=== PATIENT | male | born 1990 | race Caucasian/White ===

== ENCOUNTER 2018-06-23 19:01 | Emergency (ER) | payer BC, OTHER ==
[2018-06-23 19:11] VITALS: RESP 18
[2018-06-23] MEDS ORDERED: PROPARACAINE 0.5% OPHTH DROPS 15 ML BTL RIGHT EYE STA (19:12)
--- NOTE | 2018-06-23 19:39 | ED ---
Eye Problem HPI - General Chief complaint: Eye Problems Stated complaint: FB in eye Time Seen by Provider: 06/23/18 19:12 Source: patient Mode of arrival: ambulatory Limitations: no limitations - History of Present Illness Initial comments: 28-year-old male presenting today for chief complaint of left eye irritation. Patient states that he was working on his car yesterday evening he was working with small piece of metal. He states he was working under the car at times grinding. He denies any specific incidents where he felt something go into his eye. Patient states when he went to bed he noticed a small movable piece of foreign body however is unable to get it out of his eye. Patient states he woke up this morning with left eye irritation. Patient states when irritation persisted and is unable to remove the foreign body from his left eye he presented for evaluation. Patient states tetanus is up-to-date. Patient denies any known drug ALLERGIES. Patient denies vision loss. Patient states his left eye does water and is sensitive to light. Patient denies any eye swelling, headache nausea vomiting vision loss. Remaining review of systems negative upon arrival patient appears well. Pt wears glasses no CL use. - Related Data Home Medications Medication Instructions Recorded Confirmed Ofloxacin [Ocuflox Ophth Soln] 1 drop LEFT EYE QID 06/23/18 06/23/18 Previous Rx's Medication Instructions Recorded Erythromycin Ophth Oint [Romycin 1 applic LEFT EYE QID 5 Days #1 06/23/18 Ophth Oint] tube Allergies Allergy/AdvReac Type Severity Reaction Status Date / Time No Known Allergies Allergy Verified 06/23/18 20:06 Review of Systems ROS Statement: Those systems with pertinent positive or pertinent negative responses have been documented in the HPI. ROS Other: All systems not noted in ROS Statement are negative. Past Medical History Past Medical History: No Reported History History of Any Multi-Drug Resistant Organisms: None Reported Past Surgical History: Orthopedic Surgery Additional Past Surgical History / Comment(s): carpal tunnel Past Psychological History: No Psychological Hx Reported Smoking Status: Current every day smoker Past Alcohol Use History: None Reported Past Drug Use History: Marijuana General Exam - General Exam Comments Initial Comments: General: The patient is awake and alert, in no distress, and does not appear acutely ill. Eye: +3 mm pupils are equal, round and reactive to light, extra-ocular movements are intact. No nystagmus. Very mild conjunctival injection of the left eye in comparison with the right. This is sparing the limbus. Dorsi examination revealed uptake at the 7 o'clock position. Appears metal with rust ring. Negative Paty sign. Pain was alleviated with proparacaine. IOP 11 OS, 9OD Ears, nose, mouth and throat: There are moist mucous membranes and no oral lesions. Neck: The neck is supple, there is no tenderness or JVD. Cardiovascular: There is a regular rate and rhythm. No murmur, rub or gallop is appreciated. Respiratory: Lungs are clear to auscultation, respirations are non-labored, breath sounds are equal. No wheezes, stridor, rales, or rhonchi. Gastrointestinal: Soft, non-distended, non-tender abdomen without masses or organomegaly noted. There is no rebound or guarding present. No CVA tenderness. Bowel sounds are unremarkable. Musculoskeletal: Normal ROM, no tenderness. Strength 5/5. Sensation intact. Pulses equal bilaterally 2+. Neurological: A&O x 3. CN II-XII intact, There are no obvious motor or sensory deficits. Coordination appears grossly intact. Speech is normal. Skin: Skin is warm and dry and no rashes or lesions are noted. Psychiatric: Cooperative, appropriate mood & affect, normal judgment. Limitations: no limitations Course Vital Signs 06/23/18 06/23/18 19:10 20:34 Temperature 98.2 F 97.9 F Pulse Rate 87 68 Respiratory 18 18 Rate Blood Pressure 138/75 138/79 O2 Sat by Pulse 98 98 Oximetry Medical Decision Making - Medical Decision Making 28-year-old male presenting today for chief complaint of foreign body left eye x 1 day. Patient tetanus up-to-date. Patient was working with metals yesterday. Patient has very mild photophobia. No protective eye posturing. Mild conjunctival injection of the left eye. There is evidence of a metal foreign body with rust ring. Negative Paty sign. Normal intraocular pressures. Foreign body was removed using a Q-tip. Rust ring removal was attempted using a endy brush. Unable to fully remove rust ring completely. Patient is placed on erythromycin ointment. She was given follow-up with ophthalmology on Tuesday. Importance of follow-up as well as return parameters were discussed with patient. Patient verbalizes understanding. Discussed case attending provider Dr. Mariscal who is agreeable with patient plan of care and discahrge. Disposition Clinical Impression: Foreign body of left eye Disposition: HOME SELF-CARE Condition: Good Instructions (If sedation given, give patient instructions): Eye Foreign Body (ED) Additional Instructions: Please use medication as discussed. Please follow-up with ophthalmology in 2-3 days as discussed for removal of rust ring. Please return to emergency room if the symptoms increase or worsen or for any other concerns. Prescriptions: Erythromycin Ophth Oint [Romycin Ophth Oint] 1 applic LEFT EYE QID 5 Days #1 tube Is patient prescribed a controlled substance at d/c from ED?: No Referrals: None,Stated [Primary Care Provider] - 1-2 days Simeon Burkett MD [STAFF PHYSICIAN] - 1-2 days Time of Disposition: 19:38
[2018-06-23] MEDS ORDERED: ERYTHROMYCIN 5 MG/GM OPHTH OINT 3.5 GM TUBE LEFT EYE SCH (19:45)
[2018-06-23] MEDS ORDERED: ERYTHROMYCIN 5 MG/GM OPHTH OINT (PED) 1 GM TUBE LEFT EYE SCH (19:45)
[2018-06-23 20:35] VITALS: BP 138/79; PULSE 68; TEMP 97.9
== END 2018-06-23 20:35 | disposition home or self-care (01) ==
LOC: EC 19:01
DX: T15.12XA Foreign body in conjunctival sac, left eye, initial encounter (principal); F17.200 Nicotine dependence, unspecified, uncomplicated
CPT/HCPCS: 65205; 99283

== ENCOUNTER 2019-07-13 03:46 | Emergency (ER) | payer OTHER ==
[2019-07-13 03:52] VITALS: BP 142/86; PULSE 84; RESP 20; TEMP 98.1
--- NOTE | 2019-07-13 04:02 | ED ---
Upper Extremity HPI - General Chief Complaint: Extremity Injury, Upper Stated Complaint: fall Time Seen by Provider: 07/13/19 03:49 Source: patient, family, RN notes reviewed, old records reviewed Mode of arrival: ambulatory Limitations: no limitations - History of Present Illness Initial Comments: This is a 29-year-old male DF for evaluation patient presents today for evaluation of fall. Patient had coughing fit and became weak and his feet fell and hit his shoulder on the wall. No loss of consciousness awake and alert currently. Patient complaining of left shoulder pain but denying any other injury patient denies drugs or alcohol no current headache chest pain shortness breath or abdominal pain MD Complaint: Injury to:: right, shoulder -: hour(s) Other Extremity Injury: Shoulder: Right Other Injuries: none Handedness: right Place: home Severity scale (1-10): 4 Improves With: none Worsens With: none Context: fall, other (Patient believes he was coughing and having difficulty choking on his phlegm and then did fall to the ground) Associated Symptoms: denies other symptoms - Related Data Home Medications Medication Instructions Recorded Confirmed Ofloxacin [Ocuflox Ophth Soln] 1 drop LEFT EYE QID 06/23/18 06/23/18 Previous Rx's Medication Instructions Recorded Erythromycin Ophth Oint [Romycin 1 applic LEFT EYE QID 5 Days #1 06/23/18 Ophth Oint] tube Allergies Allergy/AdvReac Type Severity Reaction Status Date / Time No Known Allergies Allergy Verified 07/13/19 03:52 Review of Systems ROS Statement: Those systems with pertinent positive or pertinent negative responses have been documented in the HPI. ROS Other: All systems not noted in ROS Statement are negative. Past Medical History Past Medical History: No Reported History History of Any Multi-Drug Resistant Organisms: None Reported Past Surgical History: Orthopedic Surgery Additional Past Surgical History / Comment(s): carpal tunnel Past Psychological History: No Psychological Hx Reported Smoking Status: Current every day smoker Past Alcohol Use History: Occasional Past Drug Use History: Marijuana General Exam Limitations: no limitations General appearance: alert, in no apparent distress Head exam: Present: atraumatic, normocephalic, normal inspection Eye exam: Present: normal appearance, PERRL, EOMI. Absent: scleral icterus, conjunctival injection, periorbital swelling ENT exam: Present: normal exam, mucous membranes moist Neck exam: Present: normal inspection. Absent: tenderness, meningismus, lymphadenopathy Respiratory exam: Present: normal lung sounds bilaterally. Absent: respiratory distress, wheezes, rales, rhonchi, stridor Cardiovascular Exam: Present: regular rate, normal rhythm, normal heart sounds. Absent: systolic murmur, diastolic murmur, rubs, gallop, clicks GI/Abdominal exam: Present: soft, normal bowel sounds. Absent: distended, tenderness, guarding, rebound, rigid Extremities exam: Present: normal inspection, full ROM, normal capillary refill, other (Right shoulder tenderness). Absent: tenderness, pedal edema, joint swelling, calf tenderness Back exam: Present: normal inspection Neurological exam: Present: alert, oriented X3, CN II-XII intact Psychiatric exam: Present: normal affect, normal mood Skin exam: Present: warm, dry, intact, normal color. Absent: rash Course Vital Signs 07/13/19 03:47 Temperature 98.1 F Pulse Rate 84 Respiratory 20 Rate Blood Pressure 142/86 O2 Sat by Pulse 100 Oximetry - Reevaluation(s) Reevaluation #1: Medical record is reviewed Patient's pain is controlled Medical Decision Making - Medical Decision Making 29 male to the ER status post fall, patient is left shoulder contusion pain. Not requiring pain medication. Patient can be discharged home - Radiology Data Radiology results: report reviewed (X-ray left shoulder positive for contusion), image reviewed Disposition Clinical Impression: Fall, Contusion of left shoulder Disposition: HOME SELF-CARE Condition: Good Instructions (If sedation given, give patient instructions): Shoulder Sprain (ED) Is patient prescribed a controlled substance at d/c from ED?: No Referrals: None,Stated [Primary Care Provider] - 1-2 days
--- NOTE | 2019-07-13 04:18 | XR ---
EXAMINATION TYPE: XR chest 1V DATE OF EXAM: 07/13/2019 COMPARISON: 03/18/2014 HISTORY: Chest pain TECHNIQUE: FINDINGS: Heart and mediastinum are normal. Lungs are clear. Diaphragm is normal. Bony thorax appears normal. Pulmonary vascularity is normal. IMPRESSION: Normal chest. No change.
--- NOTE | 2019-07-13 04:19 | XR ---
EXAMINATION TYPE: XR shoulder complete LT DATE OF EXAM: 07/13/2019 COMPARISON: NONE HISTORY: Shoulder pain TECHNIQUE: 3 views FINDINGS: I see no fracture nor dislocation. Joint spaces are normal. There are no pathologic calcifi cations. IMPRESSION: Negative left shoulder exam.
== END 2019-07-13 04:59 | disposition home or self-care (01) ==
LOC: EC 03:46
DX: S40.012A Contusion of left shoulder, initial encounter (principal); F17.200 Nicotine dependence, unspecified, uncomplicated; W18.09XA Striking against other object with subsequent fall, initial encounter; Y92.009 Unspecified place in unspecified non-institutional (private) residence as the place of occurrence of the external cause
CPT/HCPCS: 71045; 99284

== ENCOUNTER 2019-09-06 09:40 | Observation (INO) | payer OTHER ==
[2019-09-06] MEDS ORDERED: DEXAMETHASONE SOD PHOSPHATE 10 MG/ML 1 ML VIAL IM STA ×2 (10:39→11:28)
[2019-09-06 11:03] LABS: Appearance,Urine Clear (Clear); Bilirubin,Urine Negative (Negative); Blood,Urine Negative (Negative); Color,Urine Light Yellow; Glucose,Urine (UA) Negative (Negative); Ketones,Urine Negative (Negative); Leukocyte Esterase,Urine Negative (Negative); Nitrite,Urine Negative (Negative); Protein,Urine Negative (Negative); Specific Gravity,Urine 1.009 (1.001-1.035); Urobilinogen,Urine <2.0 mg/dL (<2.0)
--- NOTE | 2019-09-06 11:31 | CT ---
EXAMINATION TYPE: CT lumbar spine wo con DATE OF EXAM: 09/06/2019 11:16 AM COMPARISON: HISTORY: Left buttock and leg pain with numbness CT DLP: 1819.4 mGycm Automated exposure control for dose reduction was used. Unenhanced CT of the lumbar spine was performed. Bone and soft tissue window settings are submitted as well as coronal and sagittal reconstructions. L1-L2: Normal disc space height. No disc herniation protrusion or central stenosis. No facet joint arthropathy. No evidence for foraminal encroachment. L2-L3: Normal disc space height. No disc herniation protrusion or central stenosis. No facet joint arthropathy. No evidence for foraminal encroachment. L3-L4: Normal disc space height. No disc herniation protrusion or central stenosis. No facet joint arthropathy. No evidence for foraminal encroachment. L4-L5: Mild degenerative disc space narrowing. Right paracentral disc bulge resulting in right latera l recess stenosis and mild right foraminal encroachment. No central stenosis. L5-S1: Mild degenerative disc space narrowing. Posterocentral disc bulge resulting in bilateral later al recess stenosis. No central stenosis or gabriel herniation. Mild bilateral foraminal encroachment. Right-sided nephrolithiasis identified.No paraspinal masses are identified. Lumbar segments are inta ct. . IMPRESSION: 1. Degenerative disc disease and disc bulging at L4-5 and L5-S1 as outlined above.
[2019-09-06] MEDS ORDERED: KETOROLAC 30 MG/ML 1 ML VIAL IVP STA (11:53)
[2019-09-06] MEDS ORDERED: KETOROLAC 30 MG/ML 1 ML VIAL IVP PRN (12:05)
[2019-09-06] MEDS ORDERED: NALOXONE 0.4 MG/ML 1 ML VIAL IV PRN (12:05)
--- NOTE | 2019-09-06 12:07 | ED ---
General Adult HPI - General Chief complaint: Back Pain/Injury Stated complaint: Back Pain Time Seen by Provider: 09/06/19 10:12 Source: patient, RN notes reviewed, old records reviewed Mode of arrival: ambulatory Limitations: no limitations - History of Present Illness Initial comments: 29-year-old male patient was ED with chief complaint of left paralumbar, midline lumbar back pain. Patient reports that has been ongoing for 6 months but has been worse in the last 6 weeks. Patient course the had a fall back in july and believes he may have hit his back. Patient reports that he is having numbness and tingling in the genital area he reports that he has had decreased ability to maintain erection in last 3 weeks. Also reports he has paresthesias radiating down his posterior left leg. Denies a loss of bowel or bladder control. Patient has been ambulatory but does report that his left side does feel weaker. Denies any other complaints. Systemic: Pt denies fatigue, fever/chills, rash. Pt denies weakness, night sweats, weight loss. Neuro: Pt denies headache, visual disturbances, syncope or pre-syncope. HEENT: Pt denies ocular discharge or irritation, otalgia, rhinorrhea, pharyngitis or notable lymphadenopathy. Cardiopulmonary: Pt denies chest pain, SOB, heart palpitations, dyspnea on exertion. Abdominal/GI: Pt denies abdominal pain, n/v/d. : Pt denies dysuria, burning w/ urination, frequency/urgency. Denies new onset urinary or bowel incontinence. - Related Data Home Medications Medication Instructions Recorded Confirmed Ibuprofen [Motrin Ib] 400 mg PO Q8H PRN 09/06/19 09/06/19 Allergies Allergy/AdvReac Type Severity Reaction Status Date / Time No Known Allergies Allergy Verified 09/06/19 10:51 Review of Systems ROS Statement: Those systems with pertinent positive or pertinent negative responses have been documented in the HPI. ROS Other: All systems not noted in ROS Statement are negative. Past Medical History Past Medical History: No Reported History History of Any Multi-Drug Resistant Organisms: None Reported Past Surgical History: Orthopedic Surgery Additional Past Surgical History / Comment(s): carpal tunnel Past Psychological History: No Psychological Hx Reported Smoking Status: Current every day smoker Past Alcohol Use History: None Reported, Occasional Past Drug Use History: None Reported, Marijuana General Exam - General Exam Comments Initial Comments: Constitutional: NAD, AOX3, Pt has pleasant affect. HEENT: NC/AT, trachea midline, neck supple, no lymphadenopathy. External ears appear normal, without discharge. Mucous membranes moist. EOM intact. There is no scleral icterus. No pallor noted. Cardiopulmonary: RRR, no murmurs, rubs or gallops, no JVD noted. Lungs CTAB in anterior and posterior marcelino. No peripheral edema. Abdominal exam: Abdomen soft and non-distended. Abdomen non-tender to palpation in all 4 quadrants. Bowel sounds active in LLQ. No hepatosplenomegaly. No ecchymosis Neuro: CN II-XII grossly intact. No nuchal rigidity. No raccon eyes, no madrigal sign. MS: 5 out of 5 strength psoas quadriceps right-sided. 4-5 strength psoas quadriceps left-sided. Patellar reflexes 1/4 bilaterally. Left straight leg raise positive, right straight leg raise negative. Heel-to-toe walking is intact. Rectal tone is intact. Patient does have sensation intact. Limitations: no limitations Course Vital Signs 09/06/19 09/06/19 09/06/19 09:57 10:01 11:01 Temperature 98.2 F Pulse Rate 73 Respiratory 18 20 20 Rate Blood Pressure 127/68 O2 Sat by Pulse 99 Oximetry Medical Decision Making - Medical Decision Making 29-year-old male patient proceeded for evaluation of lumbar back pain. Patient is complaining radiculopathy central dysfunction, saddle anesthesia. Physical exam displayed: 5 out of 5 strength psoas quadriceps right-sided. 4-5 strength psoas quadriceps left-sided. Patellar reflexes 1/4 bilaterally. Left straight leg raise positive, right straight leg raise negative. Heel-to-toe walking is intact. Rectal tone is intact. Sensation is intact. CT lumbar spine displayed degenerative disc disease and disc bulging at L4-L5, L5-S1. PVR is 30 mL. I spoke with Kylah physician nurse practitioner [facility]. Explained my concern for possible cauda equina. She discussed case with Dr. Flowers. He recommended admission and stat lumbar spine which was ordered. case discussed in depth with Dr. Mir. - Lab Data Lab Results 09/06/19 Range/Units 10:46 Urine Color Light Yellow Urine Appearance Clear (Clear) Urine pH 6.0 (5.0-8.0) Ur Specific [place] 1.009 (1.001-1.035) Urine Protein Negative (Negative) Urine Glucose (UA) Negative (Negative) Urine Ketones Negative (Negative) Urine Blood Negative (Negative) Urine Nitrite Negative (Negative) Urine Bilirubin Negative (Negative) Urine Urobilinogen <2.0 (<2.0) mg/dL Ur Leukocyte Esterase Negative (Negative) Disposition Clinical Impression: Lumbar back pain Disposition: ADMITTED IP TO THIS [facility] Condition: Serious Is patient prescribed a controlled substance at d/c from ED?: No Referrals: Baldomero David MD [Primary Care Provider] - 1-2 days
[2019-09-06] MEDS ORDERED: NICOTINE 14MG/24HR PATCH TRANSDERM SCH (12:15)
--- NOTE | 2019-09-06 14:39 | MR ---
EXAMINATION TYPE: MR lumbar spine wo con DATE OF EXAM: 09/06/2019 2:30 PM COMPARISON: NONE HISTORY: Back pain Multiplanar, MultiSpin echo imaging of the lumbar spine was performed. L1-L2: Normal disc appearance without desiccation. No herniation, protrusion or disc bulging. No ca nal stenosis is present. Foramina are patent bilaterally. L2-L3: Normal disc appearance without desiccation. No herniation, protrusion or disc bulging. No ca nal stenosis is present. Foramina are patent bilaterally. L3-L4: Normal disc appearance without desiccation. No herniation, protrusion or disc bulging. No ca nal stenosis is present. Foramina are patent bilaterally. L4-L5: Mild disc desiccation with right paracentral disc protrusion. Mild effacement of the ventral t hecal sac without evidence for central stenosis or lateral recess stenosis. L5-S1: Mild disc desiccation noted. Large extruded disc herniation identified paracentrally and to th e left measuring approximately 1.3 x 1.3 cm and resulting in left lateral recess stenosis and left fo raminal encroachment. Edema of the exiting nerve root identified. Lumbar segments are intact. No paraspinal masses are identified. Conus medullaris has a normal appe arance. IMPRESSION: 1. Large extruded left paracentral disc herniation at L5-S1 with left lateral recess stenosis and lef t foraminal encroachment. Sequestered component is difficult to exclude. 2. Small right paracentral disc protrusion.
[2019-09-06] MEDS ORDERED: LACTATED RINGERS 1,000 ML IV ONE (15:19)
[2019-09-06] MEDS ORDERED: ONDANSETRON 4 MG/2 ML VIAL ONE (15:35)
[2019-09-06] MEDS ORDERED: METOCLOPRAMIDE 5 MG/ML 2 ML VIAL ONE (15:35)
[2019-09-06] MEDS ORDERED: fentaNYL (PF) 50 MCG/ML 2 ML AMP ONE (15:38)
[2019-09-06] MEDS ORDERED: ROCURONIUM BROMIDE 10 MG/ML 5 ML VIAL IV ONE (15:38)
[2019-09-06] MEDS ORDERED: NEOSTIGMINE 1 MG/ML 10 ML VIAL ONE (15:38)
[2019-09-06] MEDS ORDERED: SUCCINYLCHOLINE CHLORIDE VIAL 200 MG/10 ML VIAL IV ONE (15:38)
[2019-09-06] MEDS ORDERED: MIDAZOLAM 2 MG/2 ML VIAL ONE (15:38)
[2019-09-06] MEDS ORDERED: GLYCOPYRROLATE 0.2 MG/ML 2 ML VIAL ONE (15:38)
[2019-09-06] MEDS ORDERED: PROPOFOL 10 MG/ML 20 ML VIAL IV ONE (15:38)
[2019-09-06] MEDS ORDERED: LIDOCAINE 1% INJ 10MG/ML (20 ML MDV) ONE (15:38)
[2019-09-06] MEDS ORDERED: HYDROmorphone (PF) 1 MG/ML ONE (15:38)
[2019-09-06] MEDS ORDERED: FAMOTIDINE 20 MG/2 ML VIAL IV ONE (15:40)
[2019-09-06] MEDS ORDERED: METOCLOPRAMIDE 5 MG/ML 2 ML VIAL IVP ONE (15:41)
[2019-09-06] MEDS ORDERED: SODIUM CHLORIDE 0.9% 50 ML with ceFAZolin 2,000 MG IV ONE ×2 (15:42)
--- NOTE | 2019-09-06 15:45 | P.HPOR ---
History of Present Illness H&P Date: 09/06/19 Chief Complaint: Left lower extremity pain with weakness and numbness patient is a very pleasant 29-year-old male seen at bedside today in regards to her back pain with flexor extremity pain and weakness. Patient's been having worsening pain in his left lower extremity over the past 2 weeks. He has been noticing some pain over the past 6 months but the last 2 weeks been unbearable for him. He says that today at the worst pains ever experience and presented to the emergency room. He says that he has been having some changes in his bowel bladder function with some difficulty urinating difficulty initiating his stream. He is also had some numbness at his perineum and some difficulty with erectile dysfunction which has never happened before. Patient says that he has felt weak in his left lower extremity has been having some stumbling issues because of the weakness. Currently the patient is not working he says that he not have any specific injury but he did fall a couple of months ago and hurt his shoulder. He says the past 2 weeks is been having worsening pain without specific trauma. He denies any fevers or chills. Denies any night sweats. Denies any history of problems with his back or lower extremity. Review of Systems as stated in HPI. He admits to some weakness of his left lower extremity. He doesn't admits to numbness in his lower extremity elevated admits to numbness at his saddle area. He says he has been having some troubles with urinary retention. He has not had loss of control of his bowels. Past Medical History Past Medical History: Asthma, Pneumonia Additional Past Medical History / Comment(s): Chronic bronchitis, chokes easily on saliva, chronic R hand/wrist pain. History of Any Multi-Drug Resistant Organisms: None Reported Past Surgical History: Orthopedic Surgery Additional Past Surgical History / Comment(s): R carpal tunnel release and R hand tumors removed. Past Anesthesia/Blood Transfusion Reactions: No Reported Reaction Past Psychological History: No Psychological Hx Reported Additional Psychological History / Comment(s): Pt resides with his girlfriend. He is independent. Smoking Status: Current every day smoker Past Alcohol Use History: None Reported, Occasional Additional Past Alcohol Use History / Comment(s): Pt started smoking in 2002 and is a ppd smoker. Past Drug Use History: Marijuana Additional Drug Use History / Comment(s): Pt states he smokes several joints of legal marijuana a day. - Past Family History Father Family Medical History: No Reported History Additional Family Medical History / Comment(s): Father is healthy Mother Additional Family Medical History / Comment(s): Mother has chronic pain/DDD Medications and Allergies Home Medications Medication Instructions Recorded Confirmed Type Ibuprofen [Motrin Ib] 400 mg PO Q8H PRN 09/06/19 09/06/19 History Allergies Allergy/AdvReac Type Severity Reaction Status Date / Time No Known Allergies Allergy Verified 09/06/19 10:51 Physical Examination Osteopathic Statement: *. No significant issues noted on an osteopathic structu ral exam other than those noted in the History and Physical/Consult. - L Spine: dermatomal strength & reflexes left Strength: ankle plantar flexion: 4/5 (at his back. The skin is clear. There is nontender to palpation. He has some pain with tries to move in bed. His lower extremities has positive Lasegue's positive straight leg raise. He has sustained dorsiflexion but he has some weakness of plantar flexion on the left. He is some paresthesias around his perineum and sacral area. His cast thighs soft nontender.) Results - Diagnostic results Lumbar MRI with contrast: report reviewed, image reviewed (the MRI of his lumbar spine was done today in the emergency room. Shows a large disc herniation L5-S1 with extruded fragment at the left paracentral area at that level. There is severe left foraminal stenosis and some compression at the cauda equina to the left. He is some disc degeneration L4 5 and L5-S1.) Assessment and Plan Assessment: early cauda equina syndrome Herniated nucleus pulposis L5-S1 Left lower extremity radiculopathy with weakness saddle paresthesias urinary retention Plan: early cauda equina syndrome Herniated nucleus pulposis L5-S1 Left lower extremity radiculopathy with weakness saddle paresthesias urinary retention the patient has evidence of early cauda equina syndrome. He has been having worsening symptoms and I think that he has a large extruded disc fragment at L5- S1 which is causing his symptoms. He may have had some worsening of the extrusion causing his worsening symptoms. He has some pads saddle paresthesias and some difficulty is with his urination over the past few days to the worsening over the past couple of weeks. He also has severe left lower extremity radiculopathy with weakness. We discussed the issue as well as the MRI findings and the disc herniation. With his acute neurologic loss I think that he is a candidate for surgical intervention. I think that surgery would involve laminectomy and discectomy at L5-S1 which could mechanically relieve the pressure on the nerve and help alleviate some of his symptoms. We discussed the possibility of continue with conservative treatment however he feels that his symptoms have been steadily worsening and is interested in pursuing surgical intervention. With his acute neurologic change think that surgery is the best option for him. We answered his questions and his discussed the risk of occasions alternatives and benefits of surgery. he has been nothing by mouth since last night. I discussed the risk of bleeding risk of infection risk and need for further surgery risk of decreased loss of motion nerve damage from postanesthesia as well as the fact that surgery may not alleviate his symptoms as explained. I answered his questions and he elects to proceed with surgical intervention as soon as possible.
[2019-09-06] MEDS ORDERED: GELATIN SPONGE,ABSORB (LARGE) 1 EACH SPONGE TOPICAL ONE (16:14)
[2019-09-06] MEDS ORDERED: BUPIVACAINE (PF) 0.25% 30 ML VIAL SQ ONE (16:14)
[2019-09-06] MEDS ORDERED: THROMBIN (BOVINE) 5,000 UNIT VIAL TOPICAL ONE (16:14)
[2019-09-06] MEDS ORDERED: methylPREDNISolone ACETATE 80 MG/ML 1 ML VIAL INJ ONE (16:40)
[2019-09-06] MEDS ORDERED: BENZOCAINE/MENTHOL LOZENG 1 EACH LOZENGE MUCOUS MEM PRN (16:57)
[2019-09-06] MEDS ORDERED: HYDROmorphone 0.5 MG/0.5 ML SYRINGE IVP PRN (16:57)
[2019-09-06] MEDS ORDERED: MAGNESIUM HYDROXIDE 2,400 MG/10 ML CUP PO PRN (16:57)
[2019-09-06] MEDS ORDERED: HYDROmorphone 1 MG/ML 1 ML SYRINGE IVP PRN (16:57)
[2019-09-06] MEDS ORDERED: HYDROcodone/APAP 5-325MG 1 EACH TAB PO PRN ×2 (16:58)
[2019-09-06] MEDS ORDERED: ONDANSETRON 4 MG/2 ML VIAL IVP PRN (16:58)
[2019-09-06] MEDS ORDERED: IBUPROFEN 400 MG TAB PO PRN (17:00)
[2019-09-06] MEDS ORDERED: SODIUM CHLORIDE 0.9% 1,000 ML IV SCH (17:00)
--- NOTE | 2019-09-06 17:20 | P.OP ---
Date of Procedure: 09/06/19 Preoperative Diagnosis: cAUDA EQUINA SYNDROME, MASSIVE DISC HERNIATION l5-s1, LOWER EXTREMITY RADICULOPATHY, LOWER EXTREMITY WEAKNESS, SADDLE PARESTHESIA, URINARY RETENTION Postoperative Diagnosis: same Anesthesia: GETA Pathology: none sent Condition: stable Disposition: PACU Description of Procedure: BRIEF OPERATIVE NOTE Preoperative Diagnosis:cAUDA EQUINA SYNDROME, MASSIVE DISC HERNIATION l5-s1, LOWER EXTREMITY RADICULOPATHY, LOWER EXTREMITY WEAKNESS, SADDLE PARESTHESIA, URINARY RETENTION Postoperative Diagnosis:cAUDA EQUINA SYNDROME, MASSIVE DISC HERNIATION l5-s1, LOWER EXTREMITY RADICULOPATHY, LOWER EXTREMITY WEAKNESS, SADDLE PARESTHESIA, URINARY RETENTION Procedure: Laminectomy and decompressionL5-S1 Discectomy for decompressionL5-S1 Use of fluoroscopic guidance Surgeon: Dr. Flowers Plant Technician: Dahlia flores Anesthesia: General anesthesia Estimated blood loss:approximately 75 mL Complications: None apparent Components implanted:none Disposition: To recovery room in good stable condition. OPERATIVE INDICATIONS The patient has been having severeissues in their lower back and lower extremities. over the past 2 weeks patient has been having severe worsening of his pain and symptoms particularly on his legs. The past day he has had pain which was incapacitating for him with weakness in his leg and new evidence of numbness at his saddle area with worsening weakness in his left lower extremity. Patient was also experiencing some urinary retention over the past 2 days. He had workup in the emergency room and an MRI which was found have a massive disc herniation at L5-S1 causing severe stenosis and correlated with his cauda equina syndrome symptoms. The patient was given some IV steroid in the emergency room but was having some neurologic loss in his lower extremities and with his saddle paresthesias and urinary retention. Given these issues in his worsening symptoms over the past several days we discussed various treatments including conservative treatment with possibly surgical intervention. We were worried that the patient may lose further function with prolonged severe compression over his cauda equina. We discussed surgical decompression and discectomy with him. We discussed various treatment options including surgery, and the patient wishes to proceed with surgery We discussed the risk, patient's alternatives and benefits of surgery including but not limited to, risk of bleeding risk of infection, risk of need for further surgery, risk of decreased, loss of motion, loss of function, nerve damage, paralysis, heart attack, blindness and . OPERATIVE SUMMARY After discussing all the risks, patient alternatives and benefits at length, the patient elected to proceed with surgical intervention, signed informed consent, and presented for their procedure. The patient was seen and examined in the preoperative holding area and the surgical site was marked. The patient was given antibiotics and brought to the operating room. The patient was sedated and intubated by anesthesia in standard fashion. The patient was positioned on to the operating room table in a prone position on the appropriate frame which was well-padded and well molded. We were careful to pad any bony prominences and pressure points. We were careful to maintain the patient's cervical spine and good neutral alignment and position throughout. The patient was prepped and draped in a normal standard fashion. An appropriate timeout and keystone protocol performed. We were able to proceed with the surgery. Fluoroscopy was utilized to establish the appropriate level. The local wound area was infiltrated with local anesthetic. An incision was made at the midline longitudinally over the appropriate levelsat L5-S1. Dissection was taken down subcutaneously to the level of the fascia which was split midline. Dissection was taken over the lamina. Intraoperative fluoroscopy was taken which showed a marker at the appropriate levelat L5-S1. With the appropriate level positively confirmed, we were able to proceed with laminectomy. The wound was copiously irrigated and suctioned dry as had been done periodically throughout the case. I performed a laminectomy with a combination of curettes and a high-speed bur and Kerrison rongeurs. A small medial facetectomy was performed again further access. A partial foraminotomy was also performed. Portions of the ligamentum flavum were taken down to expose the dura and traversing nerve root. it was obvious that there was severe compression and tension at the traversing nerve root and over the dura particular toward left side. I was able to expose the massive disc herniation underneath the posterior longitudinal ligament.I was able to mobilize the traversing nerve root and gain access to the disc space. Note was made of obvious compression from the disc. Protecting the soft tissue structures, a small annulotomy was established. there is large extruded disc for fragmentation. I was able to perform discectomy and remove any extruded disc fragments and any loose fragments from within the disc itself. There is some disc desiccation noted. I tried to preserve the disc annulus that appeared stable. There were no further extruded fragments noted. There is no evidence of dural tear or leak. Good hemostasis maintained. The wound was copiously irrigated and suctioned dry. Good decompression and discectomy was noted.the nerve root was freely mobile without any evidence of dural tear or leak. We were able to proceed with closure. The fascia was closed for a watertight closure. The subcuticular tissue was closed with absorbable suture. The wound was cleaned and dried and dressed with the appropriate dressing. The drapes were broken down. The patient was gently rolled back onto their hospital bed being careful to maintain their cervical spine and good neutral alignment and position. They were woken up by anesthesia, extubated, and brought to the recovery room in good stable condition. The patient will be admitted to the hospital for observation and for appropriate postoperative care, medical management and monitoring. We will continue to follow them closely about the postoperative course.
[2019-09-06 17:28] VITALS: TEMP 96.9
[2019-09-06 18:02] VITALS: RESP 16
[2019-09-06] MEDS ORDERED: SODIUM CHLORIDE 0.9% 1,000 ML IV ONE ×2 (18:08)
[2019-09-06 19:05] VITALS: BP 136/75; PULSE 81
--- NOTE | 2019-09-07 08:53 | FL ---
EXAMINATION TYPE: FL guidance operating room DATE OF EXAM: 09/06/2019 HISTORY: Fluoroscopy time 4 seconds of fluoroscopy provided. IMPRESSION: 1. Fluoroscopy time.
--- NOTE | 2019-09-07 09:25 | XR ---
EXAM TYPE: LUMBAR SPINE X RAY SERIES COMPARISON: NONE HISTORY: Pain TECHNIQUE: One view submitted. FINDINGS: Single view demonstrates a surgical instrument posterior to the lower lumbar spine level which is briggs ited due to artifact resolution. IMPRESSION: 1. Intraoperative localization.
--- NOTE | 2019-09-13 08:11 | P.DS ---
Providers Date of admission: 09/06/19 11:47 Attending physician: Lex Flowers Primary care physician: Keagan Jannet [facility] Course: The patient presented on the day of admission as per their operative note. He came in through the emergency room due to his weakness in his lower extremities with pain in his lower extremities and some difficulties with urinating and urinary retention and numbness. He is found to have weakness with some evidence of cauda equina syndrome and underwent MRI in the emergency room which showed a large disc herniation L5-S1 which correlated with his symptoms. With his severe symptoms and urinary retention with likely early cauda equina syndrome we discussed different treatment options including surgical intervention. The patient was very interested in pursuing surgical intervention and and after discussing the risk, patient's alternatives and benefits of surgery and conservative treatments the patient was prepared for laminectomy decompression at L5-S1 on that day. Physical Exam The incision site is clean dry and intact. His back is clear There is no erythema no drainage. There is no purulence no evidence of infection. Abdomen soft and nontender. Chest has good excursion with deep inspiration and expiration. The patient has active and passive range of motion intact at the upper and lower extremities. There is no acute change in neurologic status. He has some weakness with plantar flexion at the left lower extremity. It is not worsening. He still has some paresthesias in his saddle area. He has been able to void postoperatively on his own. Hospital Course , Postoperative day 0 status post laminectomy decompression and discectomy at L5-S1 for cauda equina syndrome due to large disc herniation L5-S1. Lower extremity weakness Urinary retention Saddle paresthesias The patient has been making good progress postoperatively. He feels his pain is significantly improved with his surgery. He is unsure of his strength hasn't made improvement but he has been able to void postoperatively on his own. They have completed the prophylactic antibiotics without any signs or symptoms of infection. The patient has been able to advance their diet, and is tolerating diet adequately. The pain was initially controlled with IV medications and is now controlled appropriately with oral medications. The patient has been able to increase their mobilization. The patient has progressed appropriately. I think they are in good stable condition for discharge today. They will be sent home with appropriate prescriptions. I answered their questions to the best of my ability in a language that they can understand and they are agreeable with the plan. They will follow up as directed in approximately one week or sooner if he is having a problems. Patient Condition at Discharge: Fair Plan - Discharge Summary Discharge Rx Participant: No New Discharge Prescriptions: New predniSONE [Deltasone] 20 mg PO DAILY #24 tab HYDROcodone/APAP 5-325MG [[place] 5] 1 - 2 each PO Q6HR PRN #56 tab PRN Reason: Pain No Action Ibuprofen [Motrin Ib] 400 mg PO Q8H PRN PRN Reason: Pain Discharge Medication List HYDROcodone/APAP 5-325MG [[place] 5] 1 - 2 each PO Q6HR PRN #56 tab 09/06/19 [Rx] Ibuprofen [Motrin Ib] 400 mg PO Q8H PRN 09/06/19 [History] predniSONE [Deltasone] 20 mg PO DAILY #24 tab 09/06/19 [Rx] Follow up Appointment(s)/Referral(s): Baldomero David MD [Primary Care Provider] - 1-2 days Lex Flowers DO [Doctor of Osteopathic Medicine] - 2 Weeks Patient Instructions/Handouts: *Surgery [facility] - (Anesthesia) Discharge Instructions Outpatient Surgery Activity/Diet/Wound Care/Special Instructions: Keep site clean. May shower with waterproof Tegaderm intact. Do not soak in a tub. After 72 hours postoperatively, patient May remove dressing and then may shower with area uncovered. Leave Steri-Strips intact and allow them to fray off on their own. May ambulate as tolerated. Avoid heavy or rigorous activity. No repetitive bending twisting or lifting. No overhead work. Discharge Disposition: HOME SELF-CARE
== END 2019-09-06 19:14 | disposition home or self-care (01) ==
LOC: EC 09:40 → 1SOBS 11:47 → 5NMEDONC 15:40
PROVIDERS: ADMIT Orthopaedic Surgery Orthopaedic Surgery of the Spine; ATTEND Orthopaedic Surgery Orthopaedic Surgery of the Spine
DX: G83.4 Cauda equina syndrome (principal); M51.17 Intervertebral disc disorders with radiculopathy, lumbosacral region; M51.37 Other intervertebral disc degeneration, lumbosacral region; M48.07 Spinal stenosis, lumbosacral region; M51.16 Intervertebral disc disorders with radiculopathy, lumbar region; N52.9 Male erectile dysfunction, unspecified; R33.9 Retention of urine, unspecified; F17.210 Nicotine dependence, cigarettes, uncomplicated; J45.909 Unspecified asthma, uncomplicated; G89.29 Other chronic pain; M25.531 Pain in right wrist; Z03.818 Encounter for observation for suspected exposure to other biological agents ruled out; Z79.899 Other long term (current) drug therapy; Z87.09 Personal history of other diseases of the respiratory system; Z91.81 History of falling; Z87.01 Personal history of pneumonia (recurrent); Z98.890 Other specified postprocedural states; Z82.69 Family history of other diseases of the musculoskeletal system and connective tissue
CPT/HCPCS: 63047; 96372; 96374; 99285; 51798; 81003; 72020; 72131; 72148; G0378 ×2; U0003; S4990; J2250; J0330; J1040; J1100; J2710; J2765; J2405; J0690; J2001; J3010; J1885; J1170; J2704

== ENCOUNTER 2019-12-29 03:47 | Emergency (ER) | payer OTHER ==
[2019-12-29 03:55] VITALS: BP 133/82; PULSE 85; RESP 18; TEMP 98.1
[2019-12-29] MEDS ORDERED: IBUPROFEN 600 MG STARTER PACK 4 TAB BTL PO STA (04:03)
[2019-12-29] MEDS ORDERED: Acetaminophen-Codeine 300-30mg TAB PO STA (04:03)
[2019-12-29] MEDS ORDERED: DEXAMETHASONE SOD PHOSPHATE 10 MG/ML 1 ML VIAL IM STA (04:03)
[2019-12-29] MEDS ORDERED: ACET/COD 300 MG/30 MG STARTER PACK 6 TAB BTL PO STA (04:03)
[2019-12-29] MEDS ORDERED: IBUPROFEN 600 MG TAB PO STA (04:03)
--- NOTE | 2019-12-29 04:08 | ED ---
Back Pain HPI - General Chief Complaint: Back Pain/Injury Stated Complaint: back pain Time Seen by Provider: 12/29/19 03:50 Source: patient, RN notes reviewed, old records reviewed Limitations: no limitations - History of Present Illness Initial Comments: this is a 29-year-old male DF for evaluation of back pain chronic back pain 5 days worsening back pain no new injury noted trauma. No history of back disease no history of disc disease with prior surgery. Patient account dysfunction type symptoms she had a prior to his prior surgery as well MD Complaint: back pain, other (no injury) -: days(s) (5) Radiation: none Severity: moderate Severity scale (1-10): 4 Quality: sharp (left-sided), aching Consistency: constant Improves With: none Worsens With: movement Context: other (no trauma by history of surgery) Associated Symptoms: denies other symptoms - Related Data Home Medications Medication Instructions Recorded Confirmed Ibuprofen [Motrin Ib] 400 mg PO Q8H PRN 09/06/19 09/06/19 Previous Rx's Medication Instructions Recorded HYDROcodone/APAP 5-325MG [[place] 5] 1 - 2 each PO Q6HR PRN #56 tab 09/06/19 predniSONE [Deltasone] 20 mg PO DAILY #24 tab 09/06/19 Allergies Allergy/AdvReac Type Severity Reaction Status Date / Time No Known Allergies Allergy Verified 12/29/19 03:55 Review of Systems ROS Statement: Those systems with pertinent positive or pertinent negative responses have been documented in the HPI. ROS Other: All systems not noted in ROS Statement are negative. Past Medical History Past Medical History: Asthma, Pneumonia Additional Past Medical History / Comment(s): Chronic bronchitis, chokes easily on saliva, chronic R hand/wrist pain. History of Any Multi-Drug Resistant Organisms: None Reported Past Surgical History: Back Surgery, Orthopedic Surgery Additional Past Surgical History / Comment(s): R carpal tunnel release and R hand tumors removed. Past Anesthesia/Blood Transfusion Reactions: No Reported Reaction Past Psychological History: No Psychological Hx Reported Smoking Status: Current every day smoker Past Alcohol Use History: Occasional Past Drug Use History: Marijuana - Past Family History Father Family Medical History: No Reported History Additional Family Medical History / Comment(s): Father is healthy Mother Additional Family Medical History / Comment(s): Mother has chronic pain/DDD General Exam Limitations: no limitations General appearance: alert, in no apparent distress, obese Head exam: Present: atraumatic, normocephalic, normal inspection Eye exam: Present: normal appearance, PERRL, EOMI. Absent: scleral icterus, conjunctival injection, periorbital swelling ENT exam: Present: normal exam, mucous membranes moist Neck exam: Present: normal inspection. Absent: tenderness, meningismus, lymphadenopathy Respiratory exam: Present: normal lung sounds bilaterally. Absent: respiratory distress, wheezes, rales, rhonchi, stridor Cardiovascular Exam: Present: regular rate, normal rhythm, normal heart sounds. Absent: systolic murmur, diastolic murmur, rubs, gallop, clicks GI/Abdominal exam: Present: soft, normal bowel sounds. Absent: distended, tenderness, guarding, rebound, rigid Extremities exam: Present: normal inspection, full ROM, normal capillary refill. Absent: tenderness, pedal edema, joint swelling, calf tenderness Back exam: Present: normal inspection Neurological exam: Present: alert, oriented X3, CN II-XII intact Psychiatric exam: Present: normal affect, normal mood Skin exam: Present: warm, dry, intact, normal color. Absent: rash Course Vital Signs 12/29/19 03:51 Temperature 98.1 F Pulse Rate 85 Respiratory 18 Rate Blood Pressure 133/82 O2 Sat by Pulse 98 Oximetry - Reevaluation(s) Reevaluation #1: 12/29/19 04:06 medical records reviewed 12/29/19 04:06 prior ER visits and surgical history is reviewed Reevaluation #2: 12/29/19 04:06 patient symptoms are improved Reevaluation #3: 12/29/19 04:06 spoke with patient regarding symptoms, patient at this point does not want to stay in the hospital will return if symptoms worsen Reevaluation #4: 12/29/19 04:07 patient has no loss of bowel or bladder no significant neurological findings able to ambulate no urinary retention loss of bowel or bladder Medical Decision Making - Medical Decision Making 29 male presented today for evaluation of acute on chronic back pain patient has known history of back disease and disc surgery patient coming in for symptom management, does not want to stay in the hospital is refusing observation, patient encouraged to follow-up with Dr. Flowers at his immediate convenience Disposition Clinical Impression: Lumbar back pain, Mechanical back pain, Lumbar radiculopathy, S/P discectomy for herniated nucleus pulposus Disposition: HOME SELF-CARE Condition: Fair Instructions (If sedation given, give patient instructions): Acute Low Back Pain (ED) Is patient prescribed a controlled substance at d/c from ED?: No Referrals: Lex Flowers DO [Doctor of Osteopathic Medicine] - 1-2 days
== END 2019-12-29 04:17 | disposition home or self-care (01) ==
LOC: EC 03:47
DX: M54.16 Radiculopathy, lumbar region (principal); G89.29 Other chronic pain; M54.9 Dorsalgia, unspecified; F17.200 Nicotine dependence, unspecified, uncomplicated; Z98.890 Other specified postprocedural states
CPT/HCPCS: 99284; 96372; J1100

== ENCOUNTER 2020-01-21 12:33 | Emergency (ER) | payer OTHER ==
[2020-01-21 12:50] VITALS: BP 127/79; PULSE 92; RESP 18; TEMP 98.8
[2020-01-21] MEDS ORDERED: methylPREDNISolone SOD SUCCI 125 MG/2 ML VIAL IM STA (13:36)
[2020-01-21] MEDS ORDERED: KETOROLAC 15 MG/ML 1 ML VIAL IM STA (13:36)
--- NOTE | 2020-01-21 14:00 | ED ---
General Adult HPI - General Chief complaint: Back Pain/Injury Stated complaint: Abd/Back Pain Time Seen by Provider: 01/21/20 13:11 Source: patient, RN notes reviewed Mode of arrival: ambulatory Limitations: no limitations - History of Present Illness Initial comments: 29-year-old male presents to the emergency room for a chief complaint of back pain. Patient reports that he has chronic back pain however has worsened again in the past month or so. Patient reports that in September he had a laminectomy and discectomy at L5-S1. Patient reports that over the past month the pain has worsened again. States that sometimes he is a sharp pain in his leg gives out. Patient denies any weakness in the leg states this is because of pain. Patient denies any bladder or bowel changes. She does admits to numbness in the groin but she states this has been persistent since his surgery and has been unchanged. Patient did see his spine surgeon for the symptoms who recommended monitoring and to follow-up in 2 weeks. Patient reports that steroids helped last time.Patient has no other complaints at this time including shortness of breath, chest pain, abdominal pain, nausea or vomiting, headache, or visual changes. - Related Data Home Medications Medication Instructions Recorded Confirmed Ibuprofen [Motrin Ib] 400 mg PO Q8H PRN 09/06/19 09/06/19 Previous Rx's Medication Instructions Recorded HYDROcodone/APAP 5-325MG [Lyerly 5] 1 - 2 each PO Q6HR PRN #56 tab 09/06/19 predniSONE [Deltasone] 20 mg PO DAILY #24 tab 09/06/19 predniSONE 50 mg PO DAILY #5 tablet 01/21/20 Allergies Allergy/AdvReac Type Severity Reaction Status Date / Time No Known Allergies Allergy Verified 12/29/19 03:55 Review of Systems ROS Statement: Those systems with pertinent positive or pertinent negative responses have been documented in the HPI. ROS Other: All systems not noted in ROS Statement are negative. Past Medical History Past Medical History: Asthma, Pneumonia Additional Past Medical History / Comment(s): Chronic bronchitis, chokes easily on saliva, chronic R hand/wrist pain. History of Any Multi-Drug Resistant Organisms: None Reported Past Surgical History: Back Surgery, Orthopedic Surgery Additional Past Surgical History / Comment(s): R carpal tunnel release and R hand tumors removed. Past Anesthesia/Blood Transfusion Reactions: No Reported Reaction Past Psychological History: No Psychological Hx Reported Smoking Status: Current every day smoker Past Alcohol Use History: Occasional Past Drug Use History: Marijuana - Past Family History Father Family Medical History: No Reported History Additional Family Medical History / Comment(s): Father is healthy Mother Additional Family Medical History / Comment(s): Mother has chronic pain/DDD General Exam Limitations: no limitations General appearance: alert, in no apparent distress Head exam: Present: atraumatic, normocephalic, normal inspection Eye exam: Present: normal appearance, PERRL, EOMI. Absent: scleral icterus, conjunctival injection, periorbital swelling ENT exam: Present: normal exam, mucous membranes moist Neck exam: Present: normal inspection. Absent: tenderness, meningismus, lymphadenopathy Respiratory exam: Present: normal lung sounds bilaterally. Absent: respiratory distress, wheezes, rales, rhonchi, stridor Cardiovascular Exam: Present: regular rate, normal rhythm, normal heart sounds. Absent: systolic murmur, diastolic murmur, rubs, gallop, clicks GI/Abdominal exam: Present: soft, normal bowel sounds. Absent: distended, tenderness, guarding, rebound, rigid Extremities exam: Present: normal capillary refill (Capillary refill less than 2 seconds in the left lower extremity, DP pulse 2+.), other (Strength 5 out of 5 in the left lower extremity. Equal to the right lower extremity. sensation intact in legs and saddle region.). Absent: full ROM (Patient has mildly decreased range of motion with hip flexion in the left hip secondary to pain.), tenderness, pedal edema, joint swelling (no edema of the left leg), calf tenderness Back exam: Absent: CVA tenderness (R), CVA tenderness (L), vertebral tenderness Neurological exam: Absent: normal gait (Patient is able to ambulate however has antalgic gait.) Course Vital Signs 01/21/20 12:46 Temperature 98.8 F Pulse Rate 92 Respiratory 18 Rate Blood Pressure 127/79 O2 Sat by Pulse 98 Oximetry Medical Decision Making - Medical Decision Making Vitals are stable. Patient is well-appearing. Patient does not have any weakness of the legs on history or physical exam. Strength 5 out of 5. Neurovascular intact. No loss of sensation in the saddle region. Patient ambulatory however does have pain with walking on the left leg. Patient denies any bladder or bowel changes. No fevers. Patient reports steroids helped in th e past. Patient was given steroids as well as a prescription. Patient has seen his surgeon for these symptoms and has a follow-up again in 2 weeks. He will follow up with his surgeon at his scheduled appointment. He'll return for any worsening symptoms. These were discussed in depth with him.I discussed this case with attending Dr. Mir who agrees with this assessment and treatment plan. Disposition Clinical Impression: Lumbar back pain, Mechanical back pain Disposition: HOME SELF-CARE Condition: Good Instructions (If sedation given, give patient instructions): Acute Low Back Pain (ED) Additional Instructions: Please take steroid as directed. Take Tylenol as needed for pain. Take your Lyerly as directed if pain is severe. Follow-up with your surgeon. If you have worsening symptoms such as weakness of the legs, bladder or bowel changes, or fevers return to the emergency room. Prescriptions: predniSONE 50 mg PO DAILY #5 tablet Is patient prescribed a controlled substance at d/c from ED?: No Referrals: Baldomero David MD [Primary Care Provider] - 1-2 days Lex Flowers DO [Doctor of Osteopathic Medicine] - 1-2 days Time of Disposition: 13:58
== END 2020-01-21 14:08 | disposition home or self-care (01) ==
LOC: EC 12:33
DX: M54.5 Low back pain (principal); M79.605 Pain in left leg; F17.200 Nicotine dependence, unspecified, uncomplicated; Z98.890 Other specified postprocedural states
CPT/HCPCS: 99283; 96372 ×2; J2930; J1885

== ENCOUNTER 2020-01-29 13:42 | Emergency (ER) | payer OTHER ==
[2020-01-29 13:48] VITALS: BP 123/70; PULSE 79; RESP 16; TEMP 98.7
[2020-01-29] MEDS ORDERED: KETOROLAC 15 MG/ML 1 ML VIAL IM STA (14:03)
[2020-01-29] MEDS ORDERED: predniSONE 50 MG TAB PO STA (14:03)
--- NOTE | 2020-01-29 14:07 | ED ---
General Adult HPI - General Chief complaint: Back Pain/Injury Stated complaint: Back pain Time Seen by Provider: 01/29/20 13:45 Source: patient, RN notes reviewed, old records reviewed Mode of arrival: wheelchair Limitations: no limitations - History of Present Illness Initial comments: This is a 29-year-old male who presents emergency department because he is having back pain on the left lower back third states the pain radiates down his left leg. Patient states the pain is getting worse and his legs giving out because the pain gets so bad. Patient denies any numbness. Patient denies any recent injury or trauma. Patient denies any area of numbness. Patient denies any incontinence or urinary retention. - Related Data Previous Rx's Medication Instructions Recorded predniSONE [Deltasone] 40 mg PO DAILY #8 tab 01/29/20 Allergies Allergy/AdvReac Type Severity Reaction Status Date / Time No Known Allergies Allergy Verified 01/29/20 14:25 Review of Systems ROS Statement: Those systems with pertinent positive or pertinent negative responses have been documented in the HPI. ROS Other: All systems not noted in ROS Statement are negative. Past Medical History Past Medical History: Asthma, Pneumonia Additional Past Medical History / Comment(s): Chronic bronchitis, chokes easily on saliva, chronic R hand/wrist pain. History of Any Multi-Drug Resistant Organisms: None Reported Past Surgical History: Back Surgery, Orthopedic Surgery Additional Past Surgical History / Comment(s): R carpal tunnel release and R hand tumors removed. Past Anesthesia/Blood Transfusion Reactions: No Reported Reaction Past Psychological History: No Psychological Hx Reported Smoking Status: Current every day smoker Past Alcohol Use History: Occasional Past Drug Use History: Marijuana - Past Family History Father Family Medical History: No Reported History Additional Family Medical History / Comment(s): Father is healthy Mother Additional Family Medical History / Comment(s): Mother has chronic pain/DDD General Exam - General Exam Comments Initial Comments: GENERAL: Patient is well-developed and well-nourished. Patient is nontoxic and well- hydrated and is in mild distress. ENT: Neck is soft and supple. No significant lymphadenopathy is noted. Oropharynx is clear. Moist mucous membranes. Neck has full range of motion without eliciting any pain. EYES: The sclera were anicteric and conjunctiva were pink and moist. Extraocular movements were intact and pupils were equal round and reactive to light. Eyelids were unremarkable. PULMONARY: Unlabored respirations. Good breath sounds bilaterally. No audible rales rhonchi or wheezing was noted. CARDIOVASCULAR: There is a regular rate and rhythm without any murmurs gallops or rubs. ABDOMEN: Soft and nontender with normal bowel sounds. SKIN: Skin is clear with no lesions or rashes and otherwise unremarkable. NEUROLOGIC: Patient is alert and oriented x3. Cranial nerves II through XII are grossly intact. Motor and sensory are also intact. Normal speech, volume and content. Symmetrical smile. Straight leg test is negative bilaterally. Patient has normal peritoneum sensation. MUSCULOSKELETAL: Normal extremities with adequate strength and full range of motion. LYMPHATICS: No significant lymphadenopathy is noted PSYCHIATRIC: Normal psychiatric evaluation. Limitations: no limitations Course Vital Signs 01/29/20 13:44 Temperature 98.7 F Pulse Rate 79 Respiratory 16 Rate Blood Pressure 123/70 O2 Sat by Pulse 99 Oximetry Medical Decision Making - Medical Decision Making X-ray of the hip shows no acute abnormality. Patient received Toradol and prednisone in the emergency department. Disposition Clinical Impression: Sciatica Disposition: HOME SELF-CARE Condition: Good Instructions (If sedation given, give patient instructions): Sciatica (ED) Prescriptions: predniSONE [Deltasone] 40 mg PO DAILY #8 tab Is patient prescribed a controlled substance at d/c from ED?: No Referrals: Baldomero David MD [Primary Care Provider] - 1-2 days Time of Disposition: 15:11
--- NOTE | 2020-01-29 14:31 | XR ---
EXAMINATION TYPE: XR Hip Complete LT DATE OF EXAM: 01/29/2020 CLINICAL HISTORY: Left hip pain. History of surgery in August with left hip pain since surgery. TECHNIQUE: AP and frogleg views of the left hip are obtained. COMPARISON: None. FINDINGS: There is no acute fracture or dislocation of the left hip. The hip joint space is maintai zach. There is well-corticated irregularity of the superolateral aspect of the femoral neck which may be related to postoperative change. Normal bone density. The overlying soft tissue appears unremarkab le. IMPRESSION: No acute fracture or dislocation of the left hip.
[2020-01-29] MEDS ORDERED: HYDROmorphone 1 MG/ML 1 ML SYRINGE IM STA (15:13)
== END 2020-01-29 15:23 | disposition home or self-care (01) ==
LOC: EC 13:42
DX: M54.40 Lumbago with sciatica, unspecified side (principal); F17.200 Nicotine dependence, unspecified, uncomplicated; Z98.890 Other specified postprocedural states
CPT/HCPCS: 73502; 99284; 96372 ×2; J1170; J1885; J7512

== ENCOUNTER 2020-02-04 22:18 | Emergency (ER) | payer OTHER ==
[2020-02-04 22:26] VITALS: BP 152/84; PULSE 80; RESP 18; TEMP 98.8
[2020-02-04] MEDS ORDERED: CYCLOBENZAPRINE 10 MG TAB PO STA (22:40)
[2020-02-04] MEDS ORDERED: MORPHINE SULFATE 4 MG/ML SYRINGE IM STA (22:40)
--- NOTE | 2020-02-04 23:29 | ED ---
General Adult HPI - General Chief complaint: Back Pain/Injury Stated complaint: Back Pain Time Seen by Provider: 02/04/20 22:28 Source: patient, RN notes reviewed, old records reviewed Mode of arrival: ambulatory Limitations: no limitations - History of Present Illness Initial comments: 29-year-old male patient to ED for left paralumbar back pain. Patient was that he has chronic lumbar back pain she reports that he has an MRI tomorrow morning and he is having some left paralumbar back pain and back spasms. She is requesting symptomatic analgesia until tomorrow. He denies any red flags symptoms. Denies any falls, denies any weakness loss of bowel or bladder control saddle anesthesias paresthesias. Systemic: Pt denies fatigue, fever/chills, rash. Pt denies weakness, night sweats, weight loss. Neuro: Pt denies headache, visual disturbances, syncope or pre-syncope. HEENT: Pt denies ocular discharge or irritation, otalgia, rhinorrhea, pharyngi tis or notable lymphadenopathy. Cardiopulmonary: Pt denies chest pain, SOB, heart palpitations, dyspnea on exertion. Abdominal/GI: Pt denies abdominal pain, n/v/d. : Pt denies dysuria, burning w/ urination, frequency/urgency. Denies new onset urinary or bowel incontinence. MSK: Pt denies loss of strength or function in extremities. Neuro: Pt denies new onset weakness, paresthesias. - Related Data Home Medications Medication Instructions Recorded Confirmed No Known Home Medications 02/04/20 02/04/20 Allergies Allergy/AdvReac Type Severity Reaction Status Date / Time No Known Allergies Allergy Verified 02/04/20 22:56 Review of Systems ROS Statement: Those systems with pertinent positive or pertinent negative responses have been documented in the HPI. ROS Other: All systems not noted in ROS Statement are negative. Past Medical History Past Medical History: Asthma, Pneumonia Additional Past Medical History / Comment(s): Chronic bronchitis, chokes easily on saliva, chronic R hand/wrist pain. History of Any Multi-Drug Resistant Organisms: None Reported Past Surgical History: Back Surgery, Orthopedic Surgery Additional Past Surgical History / Comment(s): R carpal tunnel release and R hand tumors removed. Past Anesthesia/Blood Transfusion Reactions: No Reported Reaction Past Psychological History: No Psychological Hx Reported Smoking Status: Current every day smoker Past Alcohol Use History: Occasional Past Drug Use History: Marijuana - Past Family History Father Family Medical History: No Reported History Additional Family Medical History / Comment(s): Father is healthy Mother Additional Family Medical History / Comment(s): Mother has chronic pain/DDD General Exam - General Exam Comments Initial Comments: Constitutional: NAD, AOX3, Pt has pleasant affect. HEENT: NC/AT, trachea midline, neck supple, no lymphadenopathy. External ears appear normal, without discharge. Mucous membranes moist. Eyes PERRLA, EOM intact. There is no scleral icterus. No pallor noted. Cardiopulmonary: RRR, no murmurs, rubs or gallops, no JVD noted. Lungs CTAB in anterior and posterior marcelino. No peripheral edema. Abdominal exam: Abdomen soft and non-distended. Abdomen non-tender to palpation in all 4 quadrants. Bowel sounds active in LLQ. No hepatosplenomegaly. No ecchymosis Neuro: CN II-XII grossly intact. No nuchal rigidity. No raccon eyes, no madrigal sign, no hemotympanum. No cervical spinal tenderness. MSK: Very mild tenderness to the left paralumbar region. No skin changes. 5 out of 5 strength psoas and quadriceps muscles. She'll toe walking intact. Full active ROM in upper and lower extremities, 5/5 stregnth. Limitations: no limitations Course Vital Signs 02/04/20 22:23 Temperature 98.8 F Pulse Rate 80 Respiratory 18 Rate Blood Pressure 152/84 O2 Sat by Pulse 98 Oximetry Medical Decision Making - Medical Decision Making 29-year-old male patient to ED for left paralumbar back pain. Patient was that he has chronic lumbar back pain she reports that he has an MRI tomorrow morning and he is having some left paralumbar back pain and back spasms. She is requesting symptomatic analgesia until tomorrow. He denies any red flags symptoms. Denies any falls, denies any weakness loss of bowel or bladder control saddle anesthesias paresthesias. Patient vital signs stable, afebrile. Physical exam negative for acute pathology. Patient is declining any imaging. Patient's symptoms are well controlled. We'll discharge the patient follow-up and return precautions. Case discussed with Dr. Jane. Disposition Clinical Impression: Lumbar back pain Disposition: HOME SELF-CARE Condition: Stable Instructions (If sedation given, give patient instructions): Acute Low Back Pain (ED) Additional Instructions: Follow up with PCP and orthopedist tomorrow. Have MRI tomorrow as scheduled. Return to ED with any worsening or red flag symptoms. Is patient prescribed a controlled substance at d/c from ED?: No Referrals: Baldomero David MD [Primary Care Provider] - 1-2 days Lex Flowers DO [Doctor of Osteopathic Medicine] - 1-2 days
== END 2020-02-05 00:01 | disposition home or self-care (01) ==
LOC: EC 22:18
DX: M54.5 Low back pain (principal); F17.200 Nicotine dependence, unspecified, uncomplicated
CPT/HCPCS: 99283; 96372; J2270

== ENCOUNTER 2020-02-08 21:48 | Emergency (ER) | payer OTHER ==
[2020-02-08 21:54] VITALS: BP 135/84; PULSE 111; RESP 20; TEMP 98.3
[2020-02-08] MEDS ORDERED: HYDROmorphone 1 MG/ML 1 ML SYRINGE IM STA (22:21)
[2020-02-08] MEDS ORDERED: KETOROLAC 15 MG/ML 1 ML VIAL IM STA (22:21)
[2020-02-08] MEDS ORDERED: methylPREDNISolone SOD SUCCI 125 MG/2 ML VIAL IM ONE (22:21)
[2020-02-08] MEDS ORDERED: ORPHENADRINE 30 MG/ML 2 ML VIAL IM STA (22:36)
[2020-02-08] MEDS ORDERED: ACET/COD 300 MG/30 MG STARTER PACK 6 TAB BTL PO STA (23:12)
--- NOTE | 2020-02-08 23:12 | ED ---
Back Pain HPI - General Chief Complaint: Back Pain/Injury Stated Complaint: ABD pain Time Seen by Provider: 02/08/20 22:04 Source: patient, RN notes reviewed, old records reviewed Limitations: no limitations - History of Present Illness Initial Comments: 29-year-old male presents return today for complaints of lower back pain with radiation down bilateral legs. Reports been having these symptoms off and on for the past few weeks. He has a known history of back surgery in September. Patient denies any loss of control of urine or bowel habits. Patient reports that he's been taking pain medication at home. Patient states that he had had improvement most areas but has been off the steroids for the past 2 weeks. Patient states that he has a MRI scheduled at the end of the month. - Related Data Home Medications Medication Instructions Recorded Confirmed Aspirin/Acetaminophen/Caffeine 1 tab PO DAILY PRN 02/08/20 02/08/20 [Excedrin Migraine Caplet] HYDROcodone/APAP 5-325MG [[place] 2 tab PO ONCE PRN 02/08/20 02/08/20 5-325] Previous Rx's Medication Instructions Recorded Cyclobenzaprine [Flexeril] 10 mg PO TID #12 tab 02/08/20 dexAMETHasone [Dexamethasone] 0.75 mg PO DAILY #12 tab 02/08/20 Allergies Allergy/AdvReac Type Severity Reaction Status Date / Time No Known Allergies Allergy Verified 02/08/20 22:40 Review of Systems ROS Statement: Those systems with pertinent positive or pertinent negative responses have been documented in the HPI. ROS Other: All systems not noted in ROS Statement are negative. Past Medical History Past Medical History: Asthma, Pneumonia Additional Past Medical History / Comment(s): Chronic bronchitis, chokes easily on saliva, chronic R hand/wrist pain, back pain History of Any Multi-Drug Resistant Organisms: None Reported Past Surgical History: Back Surgery, Orthopedic Surgery Additional Past Surgical History / Comment(s): R carpal tunnel release and R hand tumors removed. Past Anesthesia/Blood Transfusion Reactions: No Reported Reaction Past Psychological History: No Psychological Hx Reported Smoking Status: Current every day smoker Past Alcohol Use History: Occasional Past Drug Use History: Marijuana - Past Family History Father Family Medical History: No Reported History Additional Family Medical History / Comment(s): Father is healthy Mother Additional Family Medical History / Comment(s): Mother has chronic pain/DDD General Exam - General Exam Comments Initial Comments: 29-year-old male. Alert and oriented. Moderate discomfort Limitations: no limitations General appearance: alert, in no apparent distress Head exam: Present: atraumatic, normocephalic, normal inspection Eye exam: Present: normal appearance, PERRL, EOMI. Absent: scleral icterus, conjunctival injection, periorbital swelling Pupils: Absent: normal accommodation ENT exam: Present: normal exam, mucous membranes moist Neck exam: Present: normal inspection. Absent: tenderness, meningismus, lymphadenopathy Respiratory exam: Present: normal lung sounds bilaterally. Absent: respiratory distress, wheezes, rales, rhonchi, stridor Cardiovascular Exam: Present: regular rate, normal rhythm, normal heart sounds. Absent: systolic murmur, diastolic murmur, rubs, gallop, clicks GI/Abdominal exam: Present: soft, normal bowel sounds. Absent: distended, tenderness, guarding, rebound, rigid Extremities exam: Present: normal inspection, full ROM, normal capillary refill. Absent: tenderness, pedal edema, joint swelling, calf tenderness Back exam: Present: normal inspection, tenderness Neurological exam: Present: alert, oriented X3, CN II-XII intact Psychiatric exam: Present: normal affect, normal mood Skin exam: Present: warm, dry, intact, normal color. Absent: rash Course Vital Signs 02/08/20 21:50 Temperature 98.3 F Pulse Rate 111 H Respiratory 20 Rate Blood Pressure 135/84 O2 Sat by Pulse 98 Oximetry Medical Decision Making - Medical Decision Making 29-year-old male presents with lower back pain information of bilateral legs. The same pain and really for the past few weeks. Patient sees Dr. Flowers and had history of back surgery. He has no falls or trauma this time. Does have an upcoming MRI scheduled next 2 weeks. Patient at this time was given IM analgesics and does report improvement. Discussed suture versus steroids until following orthopedic back specialist. Discussed return parameters. Disposition Clinical Impression: Sciatica, Lumbar back pain Disposition: HOME SELF-CARE Condition: Good Instructions (If sedation given, give patient instructions): Acute Low Back Pain (ED) Additional Instructions: Please use medication as discussed. Please follow up with family doctor if symptoms have not improved over the next two days. Please return to the emergency room if your symptoms increase or worsen or for any other concerns. Prescriptions: dexAMETHasone [Dexamethasone] 0.75 mg PO DAILY #12 tab Cyclobenzaprine [Flexeril] 10 mg PO TID #12 tab Is patient prescribed a controlled substance at d/c from ED?: No Referrals: Baldomero David MD [Primary Care Provider] - 1-2 days Time of Disposition: 23:12
== END 2020-02-08 23:50 | disposition home or self-care (01) ==
LOC: EC 21:48
DX: M54.40 Lumbago with sciatica, unspecified side (principal); F17.200 Nicotine dependence, unspecified, uncomplicated
CPT/HCPCS: 99284; 96372 ×4; J2360; J2930; J1170; J1885

== ENCOUNTER 2020-02-25 19:14 | Emergency (ER) | payer OTHER ==
--- NOTE | 2020-02-25 19:48 | MR ---
EXAMINATION TYPE: MR lumbar spine wo/w con DATE OF EXAM: 02/25/2020 COMPARISON: September 06, 2019 HISTORY: LBP, BLE radiculopathy, surgery September 2001 CONTRAST: Standard multiplanar, multisequence MRI departmental protocol utilizing 14 mL intravenous Gadavist ga dolinium contrast. Lumbar vertebra have normal alignment. There is mild narrowing of disc spaces from L3 to S1. There is no compression fracture. I see no bony destructive process. There is left side laminectomy defect of L5. There is epidural enhancement on the left side at the laminectomy defect. I see no spinal stenos is. There is no lumbar paraspinal mass. There is no compression fracture. There is small posterior di sc herniation at L5-S1 on the left side. IMPRESSION: Epidural enhancement on the left side at L5-S1 consistent with scarring at the laminectomy site. Ther e is significant decrease in the left side posterior L5-S1 lumbar disc herniation compared to old exa m. Epidural scarring is a change compared to old exam.
[2020-02-25] MEDS ORDERED: HYDROmorphone 1 MG/ML 1 ML SYRINGE IM STA (20:02)
--- NOTE | 2020-02-25 20:05 | ED ---
General Adult HPI - General Chief complaint: Back Pain/Injury Stated complaint: Back Pain Time Seen by Provider: 02/25/20 19:34 Source: patient, RN notes reviewed Mode of arrival: wheelchair Limitations: no limitations - History of Present Illness Initial comments: Patient is a pleasant 29-year-old male presenting to the emergency Department with complaints of back pain. Onset of symptoms was around 6 months ago. Patient did have disc surgery around that time. Patient was doing well for a couple months and that symptoms have been returning on and off for the past few months. Patient just started on steroids 2 days ago by his primary care physician. Patient did take one pain pill earlier today. Patient went for MRI and was on the table for proximally 45 minutes. Patient had a lot of discomfort following the MRI and difficulty getting up off the table and was advised come to the emergency department. No new weakness. No loss of control of bowel or bladder. - Related Data Home Medications Medication Instructions Recorded Confirmed Aspirin/Acetaminophen/Caffeine 1 tab PO DAILY PRN 02/08/20 02/25/20 [Excedrin Migraine Caplet] Cyclobenzaprine [Flexeril] 10 mg PO TID PRN 02/25/20 02/25/20 HYDROcodone/APAP 10-325MG [[place] 1 tab PO DAILY PRN 02/25/20 02/25/20 10-325] methylPREDNISolone [Medrol Dose See Taper PO DIRECTED 02/25/20 02/25/20 Pack] Allergies Allergy/AdvReac Type Severity Reaction Status Date / Time No Known Allergies Allergy Verified 02/25/20 20:19 Review of Systems ROS Statement: Those systems with pertinent positive or pertinent negative responses have been documented in the HPI. ROS Other: All systems not noted in ROS Statement are negative. Constitutional: Denies: fever Eyes: Denies: eye pain ENT: Denies: ear pain Respiratory: Denies: cough Cardiovascular: Denies: chest pain Endocrine: Denies: fatigue Gastrointestinal: Denies: abdominal pain Genitourinary: Denies: dysuria Musculoskeletal: Reports: as per HPI, back pain Skin: Denies: rash Neurological: Denies: weakness, paresthesias Past Medical History Past Medical History: Asthma, Pneumonia Additional Past Medical History / Comment(s): Chronic bronchitis, chokes easily on saliva, chronic R hand/wrist pain, back pain History of Any Multi-Drug Resistant Organisms: None Reported Past Surgical History: Back Surgery, Orthopedic Surgery Additional Past Surgical History / Comment(s): R carpal tunnel release and R hand tumors removed. Past Anesthesia/Blood Transfusion Reactions: No Reported Reaction Past Alcohol Use History: Occasional - Past Family History Father Family Medical History: No Reported History Additional Family Medical History / Comment(s): Father is healthy Mother Additional Family Medical History / Comment(s): Mother has chronic pain/DDD General Exam Limitations: no limitations General appearance: alert, in no apparent distress Head exam: Present: normocephalic Eye exam: Present: normal appearance Neck exam: Present: normal inspection Respiratory exam: Present: normal lung sounds bilaterally Cardiovascular Exam: Present: regular rate, normal rhythm GI/Abdominal exam: Present: soft. Absent: tenderness Extremities exam: Present: normal inspection, full ROM Back exam: Present: normal inspection. Absent: tenderness, vertebral tenderness Neurological exam: Present: alert. Absent: motor sensory deficit Expanded Sensory exam: Lower Extremity Light Touch: Normal Motor strength exam: RLE: 5, LLE: 5 Psychiatric exam: Present: normal affect, normal mood Skin exam: Present: normal color Course Vital Signs 02/25/20 19:20 Temperature 98.7 F Pulse Rate 90 Respiratory 20 Rate Blood Pressure 136/97 O2 Sat by Pulse 96 Oximetry Medical Decision Making - Medical Decision Making Patient reevaluated and resting comfortably in bed. Discomfort has improved. Patient updated on MRI report and need for follow-up. - Radiology Data Radiology results: report reviewed Disposition Clinical Impression: Lumbar back pain Disposition: HOME SELF-CARE Condition: Stable Instructions (If sedation given, give patient instructions): Acute Low Back Pain (ED) Additional Instructions: Please follow-up with your primary care physician as well as Dr. Flowers in the next couple days for recheck. Return for weakness, loss of control of bowel or bladder, worsening symptoms or other concerns. Is patient prescribed a controlled substance at d/c from ED?: No Referrals: Baldomero David MD [Primary Care Provider] - 1-2 days Time of Disposition: 21:10
[2020-02-25] MEDS ORDERED: ORPHENADRINE 30 MG/ML 2 ML VIAL IM STA (20:09)
[2020-02-25 21:16] VITALS: BP 126/77; PULSE 85; RESP 16; TEMP 97.6
== END 2020-02-25 21:15 | disposition home or self-care (01) ==
LOC: EC 19:14
DX: M54.5 Low back pain (principal); J45.909 Unspecified asthma, uncomplicated; Z79.51 Long term (current) use of inhaled steroids
CPT/HCPCS: 72158; 99284; 96372 ×2; J2360; J1170; A9585

== ENCOUNTER 2020-03-28 15:18 | Emergency (ER) | payer OTHER ==
[2020-03-28 15:31] VITALS: BP 130/78; PULSE 97; RESP 18; TEMP 98.7
[2020-03-28] MEDS ORDERED: methylPREDNISolone SOD SUCCI 125 MG/2 ML VIAL IM ONE (15:58)
[2020-03-28] MEDS ORDERED: HYDROmorphone 1 MG/ML 1 ML SYRINGE IM STA (15:58)
--- NOTE | 2020-03-28 16:02 | ED ---
General Adult HPI - General Chief complaint: Back Pain/Injury Stated complaint: back & hip pain Time Seen by Provider: 03/28/20 15:20 Source: patient, RN notes reviewed, old records reviewed Mode of arrival: ambulatory Limitations: no limitations - History of Present Illness Initial comments: This is a 29-year-old male who presents emergency Department with back pain. Patient states associated there sometimes it makes his legs give way. Patient states he had back surgery a while back and initially he was doing much better but all of a sudden he has had increased pain. Patient states she seen his surgery multiple times and he has having him for follow-up with a pain specialist. Patient states he has no numbness or actual weakness he has incre ased pain particularly with standing up straight. Patient states a lot of the pain is in the upper back above the surgical site. Patient denies any fever chills. Patient denies any urinary incontinence or urinary retention. She states Motrin and steroids helped in the past. It it's only short lived. - Related Data Home Medications Medication Instructions Recorded Confirmed Aspirin/Acetaminophen/Caffeine 1 tab PO DAILY PRN 02/08/20 02/25/20 [Excedrin Migraine Caplet] Cyclobenzaprine [Flexeril] 10 mg PO TID PRN 02/25/20 02/25/20 HYDROcodone/APAP 10-325MG [[place] 1 tab PO DAILY PRN 02/25/20 02/25/20 10-325] methylPREDNISolone [Medrol Dose See Taper PO DIRECTED 02/25/20 02/25/20 Pack] Previous Rx's Medication Instructions Recorded predniSONE [Deltasone] 40 mg PO DAILY #8 tab 03/28/20 Allergies Allergy/AdvReac Type Severity Reaction Status Date / Time No Known Allergies Allergy Verified 03/28/20 15:31 Review of Systems ROS Statement: Those systems with pertinent positive or pertinent negative responses have been documented in the HPI. ROS Other: All systems not noted in ROS Statement are negative. Past Medical History Past Medical History: Asthma, Pneumonia Additional Past Medical History / Comment(s): Chronic bronchitis, chokes easily on saliva, chronic R hand/wrist pain, back pain History of Any Multi-Drug Resistant Organisms: None Reported Past Surgical History: Back Surgery, Orthopedic Surgery Additional Past Surgical History / Comment(s): R carpal tunnel release and R hand tumors removed. Past Anesthesia/Blood Transfusion Reactions: No Reported Reaction Past Psychological History: No Psychological Hx Reported Smoking Status: Current every day smoker Past Alcohol Use History: Occasional Past Drug Use History: None Reported - Past Family History Father Family Medical History: No Reported History Additional Family Medical History / Comment(s): Father is healthy Mother Additional Family Medical History / Comment(s): Mother has chronic pain/DDD General Exam - General Exam Comments Initial Comments: GENERAL: Patient is well-developed and well-nourished. Patient is nontoxic and well- hydrated and is in moderate distress. ENT: Neck is soft and supple. No significant lymphadenopathy is noted. Oropharynx is clear. Moist mucous membranes. Neck has full range of motion without eliciting any pain. There is no thyroid enlargement and no masses were felt. EYES: The sclera were anicteric and conjunctiva were pink and moist. Extraocular movements were intact and pupils were equal round and reactive to light. Eyelid s were unremarkable. SKIN: Skin is clear with no lesions or rashes and otherwise unremarkable. NEUROLOGIC: Patient is alert and oriented x3. Cranial nerves II through XII are grossly intact. Motor and sensory are also intact. Normal speech, volume and content. Symmetrical smile. Straight leg test is normal bilaterally MUSCULOSKELETAL: Normal extremities with adequate strength and full range of motion. No lower extremity swelling or edema. No calf tenderness. LYMPHATICS: No significant lymphadenopathy is noted PSYCHIATRIC: Normal psychiatric evaluation. N Limitations: no limitations Course Vital Signs 03/28/20 15:27 Temperature 98.7 F Pulse Rate 97 Respiratory 18 Rate Blood Pressure 130/78 O2 Sat by Pulse 98 Oximetry Disposition Clinical Impression: Lumbar pain Disposition: HOME SELF-CARE Condition: Good Instructions (If sedation given, give patient instructions): Low Back Strain (ED) Prescriptions: predniSONE [Deltasone] 40 mg PO DAILY #8 tab Is patient prescribed a controlled substance at d/c from ED?: No Referrals: Baldomero David MD [Primary Care Provider] - 1-2 days
== END 2020-03-28 16:27 | disposition home or self-care (01) ==
LOC: EC 15:18
DX: M54.5 Low back pain (principal); J45.909 Unspecified asthma, uncomplicated; Z79.52 Long term (current) use of systemic steroids; F17.200 Nicotine dependence, unspecified, uncomplicated
CPT/HCPCS: 99283; 96372 ×2; J2930; J1170

== ENCOUNTER → 2020-04-02 | Outpatient (CLI) | payer OTHER ==
[2020-04-02 12:49] VITALS: BP 166/93; PULSE 94; RESP 18; TEMP 98.3
--- NOTE | 2020-04-02 13:11 | P.CONS ---
History of Present Illness - Reason for Consult Consult date: 04/02/20 - Chief Complaint Lower back and legs pain - History of Present Illness This is a 29-year-old morbidly obese gentleman with history of lower back pain with radiation to the lower extremities down to the knees. The patient denies any weakness in the lower extremities or any numbness or tingling. He also denies any bowel or bladder dysfunction. He had lumbar laminectomy at the L5-S1 level due to cauda equina syndrome. The patient used Medrol Dosepak recently for his pain. He tried muscle relaxants before which has not helped his pain. He smokes one pack of cigarettes a day and he admits to using marijuana occasionally. He lives by himself. The patient's pain increases by standing and walking and also at night. There are no alleviating factors. Past Medical History Past Medical History: Asthma, Musculoskeletal Disorder, Pneumonia Additional Past Medical History / Comment(s): Hx chronic bronchitis; chronic R hand/wrist pain; back pain w/ trouble walking or standing, muscle spasms in back History of Any Multi-Drug Resistant Organisms: None Reported Past Surgical History: Back Surgery, Orthopedic Surgery Additional Past Surgical History / Comment(s): R carpal tunnel release and R hand tumors removed. Laminectomy w/ decompression, discectomy L5-S1 09/2019. Past Anesthesia/Blood Transfusion Reactions: No Reported Reaction Past Psychological History: No Psychological Hx Reported Additional Psychological History / Comment(s): Pt resides with his girlfriend. He is independent. Smoking Status: Current every day smoker Past Alcohol Use History: Rare Additional Past Alcohol Use History / Comment(s): Started smoking in 2002, 1 ppd Past Drug Use History: Marijuana Additional Drug Use History / Comment(s): Pt states he smokes several joints of legal marijuana a day. - Past Family History Father Family Medical History: No Reported History Additional Family Medical History / Comment(s): Father is healthy Mother Additional Family Medical History / Comment(s): Mother has chronic pain/DDD Medications and Allergies Home Medications Medication Instructions Recorded Confirmed Type Cyclobenzaprine [Flexeril] 10 mg PO TID PRN 02/25/20 03/31/20 History Albuterol Inhaler [Ventolin Hfa 1 - 2 puff INHALATION RT-QID PRN 03/31/20 03/31/20 History Inhaler] Ibuprofen [Motrin] 800 mg PO Q8H PRN 03/31/20 03/31/20 History predniSONE [Deltasone] 20 mg PO BID 03/31/20 03/31/20 History Allergies Allergy/AdvReac Type Severity Reaction Status Date / Time No Known Allergies Allergy Verified 03/31/20 15:31 Physical Exam Vitals: Vital Signs Temp Pulse Resp BP Pulse Ox 04/02/20 12:44 98.3 F 94 18 166/93 97 - Constitutional General appearance: morbidly obese - EENT Eyes: PERRLA - Neurologic Neuro exam of the lower extremities showed normal and symmetrical muscle strength and deep tendon reflexes, except for decreased left ankle reflex compared to the right side. Straight leg raising test negative bilaterally There is well-healed scar in the lumbar area Positive tenderness in the lumbar paravertebral musculature bilaterally on both sides of the scar. Neurologic: CNII-XII intact - Psychiatric Psychiatric: A&O x's 3, appropriate affect, intact judgment & insight Results Results: His lumbar spine MRI which was done in February 2020 showed epidural enhancement on the left side at L5-S1 consistent with scarring at the laminectomy site. Mild narrowing of disc spaces from L3 to S1 Assessment and Plan Plan: This is a 29-year-old gentleman with lower back pain with radiation to the bilateral extremities in no specific radicular distribution. 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 He also may benefit from a diagnostic lumbar medial branch block in the future if the lumbar epidural does not help his pain. I thank you for the referral
== END | disposition home or self-care (01) ==
LOC: PNWHC3 12:31
PROVIDERS: ATTEND Anesthesiology
DX: M96.1 Postlaminectomy syndrome, not elsewhere classified (principal); M51.36 Other intervertebral disc degeneration, lumbar region; M47.816 Spondylosis without myelopathy or radiculopathy, lumbar region; E66.01 Morbid (severe) obesity due to excess calories; J45.909 Unspecified asthma, uncomplicated; F17.210 Nicotine dependence, cigarettes, uncomplicated; Z79.1 Long term (current) use of non-steroidal anti-inflammatories (NSAID); Z79.52 Long term (current) use of systemic steroids
CPT/HCPCS: 99211

== ENCOUNTER 2020-04-22 10:34 | Day surgery (SDC) | payer OTHER ==
[2020-04-21 10:34] VITALS: BMI 40.8
[2020-04-22 10:57] VITALS: TEMP 97.8
[2020-04-22] MEDS ORDERED: LACTATED RINGERS 1,000 ML IV ONE ×2 (11:07)
[2020-04-22] MEDS ORDERED: LIDOCAINE 1% (10MG/ML) FOR IV START INTRADERMA ONE (11:08)
[2020-04-22] MEDS ORDERED: IOPAMIDOL M200 10 ML VIAL ONE (11:22)
[2020-04-22] MEDS ORDERED: fentaNYL (PF) 50 MCG/ML 2 ML AMP ONE (11:22)
[2020-04-22] MEDS ORDERED: TRIAMCINOLONE ACETONIDE 40 MG/ML 1 ML VIAL ONE (11:22)
[2020-04-22] MEDS ORDERED: LIDOCAINE 1% INJ 10MG/ML (20 ML MDV) ONE (11:22)
[2020-04-22] MEDS ORDERED: MIDAZOLAM 2 MG/2 ML VIAL ONE (11:22)
[2020-04-22] MEDS ORDERED: SODIUM CHLORIDE 0.9% (PF) 10 ML VIAL ONE (11:22)
--- NOTE | 2020-04-22 11:43 | P.PCN ---
Date of Procedure: 04/22/20 Description of Procedure: PREOPERATIVE DIAGNOSIS: Lumbar radiculopathy POSTOPERATIVE DIAGNOSIS: Same PROCEDURE PERFORMED: Interlaminar Epidural Steroid Injection at the L4-L5 level, with a left paramedian approach under fluoroscopic guidance SURGEON: Moise Cuenca MD ANESTHESIA: Local with 1% lidocaine 3 ml and IV sedation with Versed and fentanyl, sedation time 16 minutes Fluoroscopy was used for the procedure and images were saved in the radiology portion of the chart. EBL: Minimal PROCEDURE INDICATION: The patient presents with lumbar radicular symptoms unresponsive to conservative treatment. This is the first lumbar epidural steroid injection PROCEDURE DESCRIPTION / TECHNIQUE: The patient was seen and identified in the preoperative area. Risks, benefits, complications including but not limited to infections ,bleeding ,allergic reaction to the medications ,nerve damage and incomplete pain relief, and alternatives were discussed with the patient. The patient agreed to proceed with the procedure and signed the consent. IV was started, and vital signs were stable. Patient was taken to the OR and time out was completed. The patient was placed in the prone position on procedure table and a pillow was placed under the chest area. The cervical area was prepped and draped in the usual sterile fashion. Conscious sedation was used during the procedure to decrease patients anxiety. Vital signs was monitored during the entire procedure. Using anterior-posterior fluoroscopy, the L4-5 interlaminar space was identified and the skin over this site was marked and then infiltrated with 1% lidocaine subcutaneously. Subsequently, a 20-gauge Tuohy epidural needle 5 inch was inser selma and advanced toward the epidural space using the loss of resistance technique and guided by AP and lateral views. The correct needle position in the epidural space was verified. After negative aspiration for blood and CSF and in the absence of paresthesias, Isovue 200 2 mL's was injected under live fluoroscopy with good epidural spread. After negative aspiration, a 5 mL mixture containing 2 mL PFNS, 2 mL 1% lidocaine, 40 mg kenalog. Needle was withdrawn intact, skin was cleansed, and bandages were applied. COMPLICATIONS: None DISPOSITION / PLANS: The patient was placed in a supine position and transferred to the recovery area in a stable condition for observation. There was no evidence of lower extremity motor or sensory deficit after the procedure. Patient was discharged from the recovery room after meeting discharge criteria. Home discharge instructions were given to the patient by the staff. The patient will be scheduled a repeat procedure in the clinic in 2-4 weeks.
[2020-04-22] MEDS ORDERED: IV FLUID CONTINUATION 500 ML IV ONE (11:48)
[2020-04-22 12:00] VITALS: RESP 20
--- NOTE | 2020-04-22 12:02 | FL ---
EXAMINATION TYPE: FL guided pain mgmt statistic DATE OF EXAM: 04/22/2020 HISTORY: Fluoroscopy time 14 seconds of fluoroscopy provided. IMPRESSION: 1. Fluoroscopy time.
[2020-04-22 12:24] VITALS: BP 142/80; PULSE 90
== END 2020-04-22 12:18 | disposition home or self-care (01) ==
LOC: ORPAIN 10:34
PROVIDERS: ATTEND Anesthesiology
DX: M54.16 Radiculopathy, lumbar region (principal)
CPT/HCPCS: 62323; J2250; J3301; J2001; J3010; Q9966; 99152

== ENCOUNTER 2020-05-08 09:46 | Emergency (ER) | payer OTHER ==
[2020-05-08 09:50] VITALS: TEMP 97.7
[2020-05-08] MEDS ORDERED: KETOROLAC 15 MG/ML 1 ML VIAL IVP STA (10:05)
[2020-05-08] MEDS ORDERED: DIAZEPAM 5 MG/ML 2 ML INJ IM STA (10:05)
[2020-05-08] MEDS ORDERED: DIAZEPAM 5 MG/ML 2 ML INJ IVP STA (10:13)
--- NOTE | 2020-05-08 10:37 | XR ---
EXAMINATION TYPE: XR wrist complete RT DATE OF EXAM: 05/08/2020 CLINICAL HISTORY: Pain and swelling. TECHNIQUE: Frontal, lateral , scaphoid, and oblique images of the right wrist are obtained. 4 view scaphoid view is performed. COMPARISON: None FINDINGS: There is no acute fracture/dislocation evident in the right wrist. The joint spaces in th e right wrist appear within normal limits. The overlying soft tissue appears unremarkable. IMPRESSION: Unremarkable study.
[2020-05-08] MEDS ORDERED: methylPREDNISolone SOD SUCCI 125 MG/2 ML VIAL IV STA (10:52)
[2020-05-08] MEDS ORDERED: HYDROmorphone 1 MG/ML 1 ML SYRINGE IVP STA (10:52)
[2020-05-08] MEDS ORDERED: ONDANSETRON 4 MG/2 ML VIAL IVP STA (10:52)
[2020-05-08] MEDS ORDERED: ACET/COD 300 MG/30 MG STARTER PACK 6 TAB BTL PO STA (10:53)
--- NOTE | 2020-05-08 10:58 | ED ---
Upper Extremity HPI - General Chief Complaint: Extremity Injury, Upper Stated Complaint: R Wrist Pain Time Seen by Provider: 05/08/20 09:51 Source: patient, RN notes reviewed Mode of arrival: ambulatory Limitations: no limitations - History of Present Illness Initial Comments: This a 30-year-old male presents emergency Department chief complaint of right wrist pain. Patient had ongoing wrist injury problems with this. Patient states he had multiple tumors, cyst removed along with Proventil surgery at same time. Patient states that the tumors grew back. Patient states he woke up states pain is worse which feels like his carpal tunnel. Denies any trauma states he sleeps with his hand above his head. Patient does admit to some occasional paresthesias he is [id number]. No neck pain no fevers chills no redness or discoloration of his digits. - Related Data Home Medications Medication Instructions Recorded Confirmed Cyclobenzaprine [Flexeril] 10 mg PO TID PRN 02/25/20 05/07/20 Albuterol Inhaler [Ventolin Hfa 1 - 2 puff INHALATION RT-QID PRN 03/31/20 05/07/20 Inhaler] Ibuprofen [Motrin] 800 mg PO Q8H PRN 03/31/20 05/07/20 Previous Rx's Medication Instructions Recorded predniSONE 50 mg PO DAILY #5 tab 05/08/20 Allergies Allergy/AdvReac Type Severity Reaction Status Date / Time No Known Allergies Allergy Verified 05/08/20 09:50 Review of Systems ROS Statement: Those systems with pertinent positive or pertinent negative responses have been documented in the HPI. ROS Other: All systems not noted in ROS Statement are negative. Past Medical History Past Medical History: Asthma, Pneumonia Additional Past Medical History / Comment(s): Chronic bronchitis, chokes easily on saliva, chronic R hand/wrist pain, back pain History of Any Multi-Drug Resistant Organisms: None Reported Past Surgical History: Back Surgery, Orthopedic Surgery Additional Past Surgical History / Comment(s): R carpal tunnel release and R hand tumors removed. Past Anesthesia/Blood Transfusion Reactions: No Reported Reaction Past Psychological History: No Psychological Hx Reported Smoking Status: Current every day smoker Past Alcohol Use History: None Reported Past Drug Use History: Marijuana - Past Family History Father Family Medical History: No Reported History Additional Family Medical History / Comment(s): Father is healthy Mother Additional Family Medical History / Comment(s): Mother has chronic pain/DDD General Exam Limitations: no limitations General appearance: alert, in no apparent distress Head exam: Present: atraumatic, normocephalic, normal inspection Eye exam: Present: normal appearance, PERRL, EOMI. Absent: scleral icterus, conjunctival injection, periorbital swelling Neck exam: Present: normal inspection, full ROM. Absent: tenderness, meningismus, lymphadenopathy Respiratory exam: Present: normal lung sounds bilaterally. Absent: respiratory distress, wheezes, rales, rhonchi, stridor Cardiovascular Exam: Present: regular rate, normal rhythm, normal heart sounds. Absent: systolic murmur, diastolic murmur, rubs, gallop, clicks Extremities exam: Present: other (Capillary refill less than 2 seconds of all digits, full range of motion of the right hand and wrist but reports moderate discomfort. There is swelling, tenderness over the wrist with no erythema no increased warmth radial pulses palpable and equal bilaterally) Course Vital Signs 05/08/20 09:48 Temperature 97.7 F Pulse Rate 80 Respiratory 16 Rate Blood Pressure 155/63 O2 Sat by Pulse 98 Oximetry Medical Decision Making - Medical Decision Making X-rays unremarkable. Patient does have some ongoing risk issues related to carpal tunnel, tumors. Patient symptoms are more inflammatory. Patient was given pain medication, steroids will be discharged in stable condition with follow-up with Dr. Bolton. Disposition Clinical Impression: Wrist pain, Carpal tunnel syndrome Disposition: HOME SELF-CARE Condition: Stable Instructions (If sedation given, give patient instructions): Wrist Injury (ED) Additional Instructions: Please return to the Emergency Department if symptoms worsen or any other concerns. Prescriptions: predniSONE 50 mg PO DAILY #5 tab Is patient prescribed a controlled substance at d/c from ED?: No Referrals: Baldomero David MD [Primary Care Provider] - 1-2 days Marcello Bolton DO [Doctor of Osteopathic Medicine] - 1-2 days Time of Disposition: 10:58
[2020-05-08 11:19] VITALS: BP 126/40; PULSE 72; RESP 17
== END 2020-05-08 11:25 | disposition home or self-care (01) ==
LOC: EC 09:46
DX: G56.01 Carpal tunnel syndrome, right upper limb (principal); J44.9 Chronic obstructive pulmonary disease, unspecified; F17.200 Nicotine dependence, unspecified, uncomplicated; Z79.1 Long term (current) use of non-steroidal anti-inflammatories (NSAID); Z79.52 Long term (current) use of systemic steroids
CPT/HCPCS: 73110; 99283; 96374; 96375; 96372; J2930; J3360; J2405; J1170; J1885

== ENCOUNTER 2020-05-13 09:58 | Day surgery (SDC) | payer OTHER ==
[2020-05-07 16:00] VITALS: BMI 42.8
[~2020-05-13 09:58] MED LIST: LACTATED RINGERS 1,000 ML IV SCH
[2020-05-13 10:35] VITALS: RESP 16; TEMP 98
[2020-05-13] MEDS ORDERED: fentaNYL (PF) 50 MCG/ML 2 ML AMP ONE (10:43)
[2020-05-13] MEDS ORDERED: methylPREDNISolone ACETATE 40 MG/ML 1 ML VIAL ONE (10:43)
[2020-05-13] MEDS ORDERED: MIDAZOLAM 2 MG/2 ML VIAL ONE (10:43)
[2020-05-13] MEDS ORDERED: IOPAMIDOL M200 10 ML VIAL ONE (10:43)
--- NOTE | 2020-05-13 11:04 | P.PCN ---
Date of Procedure: 05/13/20 Procedure(s) Performed: PREOP DIAGNOSIS: 1- Lumbar postlaminectomy syndrome. 2-lumbar spondylosis with lumbar facet arthropathy. 3-lumbar radiculopathy POSTOP DIAGNOSIS:Same as pre op diagnosis. PROCEDURE: 1-Caudal epidural steroid injection with epidurolysis and epidurogram under fluoroscopic guidance. (Fluoroscopy images available in the radiology Department ) 2-caudal epidurogram. ANESTHESIA: Local with 1% lidocaine 3 ml ,and moderate sedation, with Versed 4 mg ,and fentanyl 100 g. EBL: Minimal. PROCEDURE INDICATION: The patient with post-laminectomy syndrome with low back pain and radiculopathy radiating down in both legs, here for a caudal epidural steroid injection with epidurolysis. PROCEDURE DESCRIPTION: The patient was seen and identified in the preoperative area. Risks, benefits, complications, and alternatives were discussed with the patient. The patient agreed to proceed with the procedure and signed the consent. IV was started, and vital signs were stable. Patient was taken to the OR and time out was completed. The patient was placed in the prone position on procedure table and a pillow was placed under the abdomen to reduce lumbar lordosis. The lumbosacral area was prepped and draped in the usual sterile fashion. Vital signs were closely monitored during the procedure. lateral view and the anterior-posterior plates of the sacrum were identified with infiltration of the area overlying the sacral hiatus with 1% lidocaine .A 17 gauge RK epidural needle was used to advance through the sacral hiatus into the caudal epidural space. Omnipaque 180 dye. 2cc was injected and the position of the needle was verified to be in the midline. A Racz catheter was introduced into the epidural space and was advanced towards the L5-S1 interspace under direct fluoroscopic guidance. Multiple passes were made with the catheter for lysis of epidural adhesions. Depo-Medrol 60 mg with 3ml of preservative free Lidocaine 1% and 5 ml of preservative free normal saline was injected slowly. Additional spread was seen to L4 under fluoroscopy. The needle and the catheter were withdrawn intact. EPIDUROGRAM: Omnipaque 180 mg dye 2 ml was injected with spread of the dye into the caudal epidural space and with spread cutoff at L5 prior to epidurolysis. Post epidurolysis dye 2 ml was injected and spread was seen to L3-4.There was further spread of the solution together with the dye above the L3 COMPLICATIONS: None. DISPOSITION / PLANS: The patient was placed in a supine position and transferred to the recovery area in a stable condition for observation and was discharged from the recovery room after meeting discharge criteria. Home discharge instructions given to the patient by the staff. The patient was reexamined prior to discharge. The patient will schedule a follow up in the clinic in 2-4 weeks.
--- NOTE | 2020-05-13 11:12 | FL ---
EXAMINATION TYPE: FL guided pain mgmt statistic DATE OF EXAM: 05/13/2020 HISTORY: Fluoroscopy time 9 seconds of fluoroscopy provided. IMPRESSION: 1. Fluoroscopy time.
[2020-05-13] MEDS ORDERED: IV FLUID CONTINUATION 1,000 ML IV ONE (11:23)
[2020-05-13 11:25] VITALS: BP 107/59; PULSE 66
== END 2020-05-13 11:37 | disposition home or self-care (01) ==
LOC: ORPAIN 09:58
PROVIDERS: ATTEND Specialist
DX: M47.26 Other spondylosis with radiculopathy, lumbar region (principal); M51.16 Intervertebral disc disorders with radiculopathy, lumbar region; M96.1 Postlaminectomy syndrome, not elsewhere classified
CPT/HCPCS: 62264; J2250; J1030; J3010; Q9966; C1894; 99152

== ENCOUNTER → 2020-06-02 | Outpatient (CLI) | payer OTHER ==
[2020-06-02 09:19] VITALS: BP 138/83; PULSE 108; RESP 16; TEMP 98.1
--- NOTE | 2020-06-02 09:34 | P.PN ---
Subjective Progress Note Date: 06/02/20 This is a 30-year-old gentleman with history of chronic lower back pain with radiation to the left foot bilaterally. The patient has more pain in the lower back than in his legs. He had caudal epidural steroid injection was given him with pain relief for couple of weeks over his back pain is more intense than his legs and he does wake her up at night. Patient denies new-onset weakness, bowel/bladder incontinence, or any other si gns or symptoms of cauda equina syndrome. There are no signs of acute intoxication, and no indications of medication diversion or overuse. In addition to above, 13-point review of systems is also negative for chest pain, shortness of breath, changes in vision, changes in hearing, new onset weakness, abdominal pain, diarrhea, extreme fatigue, malaise, fever, skin changes, homicidal or suicidal ideation, or bowel or bladder incontinence. Vital Signs: Reviewed in EMR Gen: AAOx3, NAD HEENT: PERRLA,hearing grossly normal Pulm: resp unlabored Neck: supple, trachea midline Neuro exam of the lower extremities: Normal muscle strength bilaterally Straight leg raising test: Shaquille's test: Range of motion of the lumbar spine: Facet loading test: Positive in the lumbar area bilaterally Tenderness in the paravertebral musculature: Positive on the lumbar area bilaterally Neuro: CN II-XII grossly intact, Imaging: Reviewed in EMR/chart Assessment: Lumbar spondylosis without myelopathy Lumbar postlaminectomy pain syndrome Morbid obesity Tobacco dependence Plan: 1. Explanation: Opioid and psychological risk scores were reviewed. Diagnoses, prognoses, and multiple treatment options including but not limited to physical therapy, interventional therapies, adjuvant medical therapies, narcotic medication therapies, and surgery were discussed with the patient and all questions were answered to the patient's satisfaction. 2. Opioid agreement: Signed with the patient and the patient is warned not to use opioids while driving or before driving and not to combine opioids with benzodiazepines or alcohol. 3. Counseling: The patient was counseled extensively on SMOKING CESSATION, BODY MASS INDEX, EXERCISE. Specifically, the patient was instructed regarding the importance of smoking cessation, obesity, and exercise in the context of both chronic pain and overall health. 4. Procedures: Schedule for a diagnostic lumbar medial branch block under fluoroscopic guidance for levels L4 5 and L5-S1 bilaterally. 5. Consultations: None 6. Investigations: None 7. Medications: The patient takes Motrin 800 mg twice a day 8. Disposition: Return to the above-mentioned procedure as soon as possible 9. Maps were reviewed and were appropriate. Objective - Vital Signs Vital signs: Vital Signs Temp 98.1 F 06/02/20 09:17 Pulse 108 H 06/02/20 09:17 Resp 16 06/02/20 09:17 BP 138/83 06/02/20 09:17 Pulse Ox 97 06/02/20 09:17
== END ==
LOC: PNWHC3 09:06
PROVIDERS: ATTEND Anesthesiology
DX: M47.816 Spondylosis without myelopathy or radiculopathy, lumbar region (principal); M96.1 Postlaminectomy syndrome, not elsewhere classified; E66.01 Morbid (severe) obesity due to excess calories; F17.200 Nicotine dependence, unspecified, uncomplicated
CPT/HCPCS: 99211

== ENCOUNTER 2020-06-08 05:57 | Emergency (ER) | payer OTHER ==
[2020-06-08 06:06] VITALS: BP 126/74; RESP 18; TEMP 97.9
[2020-06-08] MEDS ORDERED: KETOROLAC 15 MG/ML 1 ML VIAL IM STA (06:40)
[2020-06-08] MEDS ORDERED: HYDROcodone/APAP 5-325MG 1 EACH TAB PO STA (06:40)
[2020-06-08] MEDS ORDERED: ACET/COD 300 MG/30 MG STARTER PACK 6 TAB BTL PO STA (06:47)
--- NOTE | 2020-06-08 06:47 | ED ---
Back Pain HPI - General Chief Complaint: Back Pain/Injury Stated Complaint: back/hip pain Time Seen by Provider: 06/08/20 06:29 Source: patient Limitations: no limitations - History of Present Illness Initial Comments: Patient is a 30-year-old male, with history of chronic back pain, presenting to the emergency Department with complaints of increase in his chronic back pain. He denies any falls or trauma. He denies any fevers or chills. He states he did have a phone conversation with the pain clinic earlier this week, they did have a plan for more epidurals. Patient states he has been taking 2 ibuprofen daily for his pain however he has not been able to sleep very well over the last few days secondary to increase the pain. He states it's mostly in his right low back with radiation into his right hip which has been the same symptoms for a while. He denies any loss of bowel or bladder function, no saddle paresthesias. He states these symptoms are not new. He has no further complaints. - Related Data Home Medications Medication Instructions Recorded Confirmed Cyclobenzaprine [Flexeril] 10 mg PO TID PRN 02/25/20 05/28/20 Albuterol Inhaler [Ventolin Hfa 1 - 2 puff INHALATION RT-QID PRN 03/31/20 05/28/20 Inhaler] Ibuprofen [Motrin] 800 mg PO Q8H PRN 03/31/20 05/28/20 Previous Rx's Medication Instructions Recorded predniSONE 50 mg PO DAILY 5 Days #5 tab 06/08/20 Allergies Allergy/AdvReac Type Severity Reaction Status Date / Time No Known Allergies Allergy Verified 06/08/20 06:03 Review of Systems ROS Statement: Those systems with pertinent positive or pertinent negative responses have been documented in the HPI. ROS Other: All systems not noted in ROS Statement are negative. Past Medical History Past Medical History: Asthma, Pneumonia Additional Past Medical History / Comment(s): Chronic bronchitis, chokes easily on saliva, chronic R hand/wrist pain, back pain. History of Any Multi-Drug Resistant Organisms: None Reported Past Surgical History: Back Surgery, Orthopedic Surgery Additional Past Surgical History / Comment(s): R carpal tunnel release and R hand tumors removed., pain clinic procedures. Past Anesthesia/Blood Transfusion Reactions: No Reported Reaction Past Psychological History: No Psychological Hx Reported Smoking Status: Current every day smoker Past Alcohol Use History: None Reported Past Drug Use History: Marijuana - Past Family History Father Family Medical History: No Reported History Additional Family Medical History / Comment(s): Father is healthy Mother Additional Family Medical History / Comment(s): Mother has chronic pain/DDD General Exam - General Exam Comments Initial Comments: GENERAL: Patient is well-developed and well-nourished. Patient is nontoxic and in no acute distress. HEAD: Atraumatic, normocephalic. EYES: Pupils equal round and reactive to light, extraocular movements intact, sclera anicteric, conjunctiva are normal. Eyelids were unremarkable. ENT: TMs normal, nares patent, oropharynx clear without exudates. Moist mucous membranes. NECK: Normal range of motion, supple without lymphadenopathy or JVD. LUNGS: Unlabored respirations. Breath sounds clear to auscultation bilaterally and equal. No wheezes rales or rhonchi. HEART: Regular rate and rhythm without murmurs, rubs or gallops. ABDOMEN: Soft, nontender, normoactive bowel sounds. No guarding, no rebound. No masses appreciated. : Deferred MUSCULOSKELETAL: Normal extremities with adequate strength and normal range of motion, no pitting or edema. No clubbing or cyanosis. Patient has full trunk range of motion, tender to palpation of the right low back. NEUROLOGICAL: Patient is alert and oriented x 3. Motor and sensory are also intact. Cranial nerves II through XII grossly intact. Symmetrical smile. Normal speech, normal gait. PSYCH: Normal mood, normal affect. SKIN: Warm, Dry, normal turgor, no rashes or lesions noted. Limitations: no limitations Course Vital Signs 06/08/20 06:03 Temperature 97.9 F Pulse Rate 98 Respiratory 18 Rate Blood Pressure 126/74 O2 Sat by Pulse 96 Oximetry Medical Decision Making - Medical Decision Making Patient is a 30-year-old male with history of chronic back pain presenting with an increase in his right low back pain. He states he did call his pain management doctor earlier this week, they did have a plan to schedule an epidural. He currently takes 2 ibuprofens daily for his pain which has not been helping. He states this pain is not new, denies any falls or trauma. Denies any signs or symptoms of caudae equina. Patient will be given an injection of Toradol tablets of [place] here in the ER and I will send him home with a starter pack of Tylenol 3 as well as a prescription for steroids which he states has helped in the past. He will follow-up with his pain management doctors. He is stable for discharge and he is in agreement with this plan of care. Case discussed with Dr. Artis. Disposition Clinical Impression: Acute exacerbation of chronic low back pain Disposition: HOME SELF-CARE Condition: Stable Instructions (If sedation given, give patient instructions): Acute Low Back Pain (ED) Additional Instructions: Please return to the Emergency Department if symptoms worsen or any other concerns. Alternate ibuprofen and Tylenol for pain relief. Try ice as well as heat to the area. Follow-up with your pain management doctors. Prescriptions: predniSONE 50 mg PO DAILY 5 Days #5 tab Is patient prescribed a controlled substance at d/c from ED?: No Referrals: Baldomero David MD [Primary Care Provider] - 1-2 days Time of Disposition: 06:47
[2020-06-08 06:57] VITALS: PULSE 95
== END 2020-06-08 06:57 | disposition home or self-care (01) ==
LOC: EC 05:57
DX: M54.5 Low back pain (principal); M25.551 Pain in right hip; G89.29 Other chronic pain; J45.909 Unspecified asthma, uncomplicated; F17.200 Nicotine dependence, unspecified, uncomplicated
CPT/HCPCS: 99283; 96372; J1885

== ENCOUNTER 2020-06-27 06:20 | Day surgery (SDC) | payer OTHER ==
[2020-06-25 12:40] VITALS: BMI 42.8
[2020-06-27 06:38] VITALS: TEMP 98.2
[2020-06-27] MEDS ORDERED: LACTATED RINGERS 1,000 ML IV ONE ×2 (06:45→07:25)
[2020-06-27] MEDS ORDERED: LIDOCAINE 1% (10MG/ML) FOR IV START INTRADERMA ONE (06:45)
[2020-06-27] MEDS ORDERED: TRIAMCINOLONE ACETONIDE 40 MG/ML 1 ML VIAL ONE (07:02)
[2020-06-27] MEDS ORDERED: fentaNYL (PF) 50 MCG/ML 2 ML AMP ONE (07:02)
[2020-06-27] MEDS ORDERED: IOPAMIDOL M200 10 ML VIAL ONE (07:02)
[2020-06-27] MEDS ORDERED: MIDAZOLAM 2 MG/2 ML VIAL ONE (07:02)
[2020-06-27] MEDS ORDERED: ROPIVACAINE 5MG/ML 20ML VIAL ONE (07:02)
--- NOTE | 2020-06-27 07:20 | P.PCN ---
Date of Procedure: 06/27/20 Description of Procedure: PREOPERATIVE DIAGNOSIS : Lumbar spondylosis with Facet Arthropathy without myelopathy POSTOPERATIVE DIAGNOSIS: same PROCEDURE: first Diagnostic lumbar medial branch block with fluoroscopy at L3, L4, L5 [bilateral] which covers facets L4-5 and L5-S1 ANESTHESIA: Local anesthetic; moderate IV sedation Fluoroscopy was used for the procedure and images were saved in the radiology portion of the chart. Surgeon: Moise Cuenca MD PROCEDURE INDICATION: Lumbar back pain without radiculopathy, not responsive to conservative management. PROCEDURE DESCRIPTION: the patient was seen and identified in the preop holding area , risks and benefits and possible complications of the procedure and alternatives were discussed with the patient, and the patient agreed to proceed with the procedure and signed the consent . IV was started , vital signs were monitored during the procedure and fluoroscopy was used to maximize the benefit and accuracy of the needle placement, and sedation was given to decrease patient anxiety. Patient was taken to the procedure room and placed in prone position. The lumbar region was prepped using chlorhexidineX-2. Under strict sterile technique using AP fluoroscopy the bilateral sacral ala were identified and using ipsilateral oblique fluoroscopy ,the junction of the transverse process and the superior articulating process of the L4, L5 vertebra which corresponds to the fluoroscopy image of the eye of the Isaac dog for the medial branches were identified. Subsequently, after local infiltration of skin with lidocaine 1% 0.2 mL at each level , a 22-gauge 5" Quincke-type needle was placed at the junction of the base of the transverse process and the superior articular process at the appropriate level as well as the sacral ala, and the needle was advanced until the periosteum contacted, needle placement confirmed with AP and oblique fluoroscopy, 0.2 mL of Isovue 200 per level was injected which revealed no vascular uptake and after negative aspiration, 1 mL of a mixutre of ropivicaine 0.5% and depomedrol 40 mg was injected at each level and the needle subsequently removed . A total of [2 levels injected bilaterally] At the end of the procedure and the needles were removed and a bandage applied after the skin was cleaned. The patient was taken to recovery room in stable condition and monitors in the recovery room for 20-30 minutes and discharged home in stable condition after discharge criteria met and patient will follow up repeat procedure if patient achieves adequate analgesia in 2-4 weeks. EBL: Minimal COMPLICATION: None.
[2020-06-27 07:42] VITALS: BP 115/67; PULSE 67; RESP 18
--- NOTE | 2020-06-27 11:32 | FL ---
Fluoroscopy HISTORY: Pain 11 seconds fluoroscopy time supplied to the referring clinician. 3 intraoperative C-arm images docum ent the procedure. See dictated report from anesthesia.
== END 2020-06-27 07:57 | disposition home or self-care (01) ==
LOC: ORPAIN 06:20
PROVIDERS: ATTEND Anesthesiology
DX: M47.816 Spondylosis without myelopathy or radiculopathy, lumbar region (principal); J45.909 Unspecified asthma, uncomplicated; F17.210 Nicotine dependence, cigarettes, uncomplicated; Z79.1 Long term (current) use of non-steroidal anti-inflammatories (NSAID); Z79.899 Other long term (current) drug therapy
CPT/HCPCS: 64493; 64494; J2250; J3301; J3010; Q9966; J2795

== ENCOUNTER 2020-07-25 06:51 | Day surgery (SDC) | payer OTHER ==
[2020-07-23 13:32] VITALS: BMI 43.5
[2020-07-25 07:19] VITALS: RESP 16; TEMP 98.2
[2020-07-25] MEDS ORDERED: MIDAZOLAM 2 MG/2 ML VIAL ONE (07:47)
[2020-07-25] MEDS ORDERED: fentaNYL (PF) 50 MCG/ML 2 ML AMP ONE (07:47)
[2020-07-25] MEDS ORDERED: methylPREDNISolone ACETATE 40 MG/ML 1 ML VIAL ONE (07:48)
[2020-07-25] MEDS ORDERED: ROPIVACAINE 5MG/ML 20ML VIAL ONE (07:48)
--- NOTE | 2020-07-25 08:11 | P.PCN ---
Date of Procedure: 07/25/20 Procedure(s) Performed: PREOPERATIVE DIAGNOSIS : 1- Lumbar spondylosis with Facet Arthropathy without myelopathy . POSTOPERATIVE DIAGNOSIS: 1- Lumbar spondylosis with Facet Arthropathy without myelopathy . PROCEDURE: Diagnostic bilateral L3 , L4 , and L5 medial branch block under fluoroscopy guidance(fluoroscopy images available in the radiology Department ) ( To target the facet joint between L4-5 , and L5-S1 ) ANESTHESIA: Monitored anesthesia care as per anesthesia department EBL: Minimal COMPLICATION: None PROCEDURE INDICATION: Chronic low back pain secondary to Facet arthropathy unresponsive to conservative treatment. PROCEDURE DESCRIPTION: the patient was seen and identified in the preop holding area , risks and benefits and possible complications of the procedure and alternative were discussed with the patient, and the patient agreed to proceed with the procedure and signed the consent and vital signs monitored during the procedure and fluoroscopy was used to maximize the benefit and accuracy of the needle placement, and sedation was given to decrease patient anxiety, patient was taken to the procedure room and placed in prone position vital signs monitored in the back prepped with chlorhexidine X3 then under strict sterile technique using a right oblique fluoroscopy ,the junction of the transverse process and the superior articulating process of the right L3 , L4 , and L5 vertebra which corresponding to the fluoroscopy image of the eye of the Isaac dog on the block side for the medial branches and subsequently , after local infiltration of skin and subcu tissuies with Ropivacaine 0.5 % , one mL at each level ,then 22-gauge 5 inches Quincke-type needles , 3 needle was used , each one of them placed at the junction of the base of the transverse process and the superior articular process at the appropriate level, and the needle was advanced until the periosteum contacted, needle placement confirmed with AP oblique and lateral view and after appropriate needle placement confirmed, and after negative aspiration for heme and CSF and there was no paresthesia 1-1/2 mL of Ropivacaine 0.5% mixed with 20 mg Depo-Medrol , then half mL injected at each level after negative aspiration the needle subsequently removed and the same procedure repeated for the left side at left side at L3 , L4 and L5 levels. At the end of the procedure and the needles removed and a bandage applied after the skin was cleaned the cleaning solution patient taken to recovery room in stable condition and monitors in the recovery room for 20-30 minutes and discharged home in stable condition after discharge criteria met and patient will follow up with the pain clinic in 2-4 weeks
[2020-07-25] MEDS ORDERED: LACTATED RINGERS 1,000 ML IV ONE (08:13)
[2020-07-25] MEDS ORDERED: IV FLUID CONTINUATION 1,000 ML IV ONE (08:13)
[2020-07-25 08:33] VITALS: BP 127/80; PULSE 75
[2020-07-25 08:33] LABS: Glucose,Whole Blood 111 mg/dL (75-99)
--- NOTE | 2020-07-26 06:19 | FL ---
EXAMINATION TYPE: FL guided pain mgmt statistic DATE OF EXAM: 07/25/2020 CLINICAL HISTORY: Low back pain. TECHNIQUE: Fluoroscopy. COMPARISON: None. FINDINGS: Fluoroscopic guidance was provided during pain relief procedure performed by Dr. Ott . A total of 19 seconds of fluoroscopic time was utilized during the procedure and 4 spot images are acquired. Images acquired shows needle localization at multiple levels in the lumbar spine. IMPRESSION: As Above.
== END 2020-07-25 08:46 | disposition home or self-care (01) ==
LOC: ORPAIN 06:51
PROVIDERS: ATTEND Specialist
DX: M47.817 Spondylosis without myelopathy or radiculopathy, lumbosacral region (principal); M47.816 Spondylosis without myelopathy or radiculopathy, lumbar region; J45.909 Unspecified asthma, uncomplicated; F17.210 Nicotine dependence, cigarettes, uncomplicated; Z79.899 Other long term (current) drug therapy
CPT/HCPCS: 64493; 64494; 64495; J2250; J1030; J3010; J2795

== ENCOUNTER 2021-09-12 19:05 | Emergency (ER) | payer OTHER ==
[2021-09-12 19:44] VITALS: BP 119/65; PULSE 79; RESP 18; TEMP 97.5
--- NOTE | 2021-09-12 20:18 | XR ---
EXAMINATION TYPE: XR ankle complete LT DATE OF EXAM: 09/12/2021 COMPARISON: NONE HISTORY: Pain TECHNIQUE: 3 views FINDINGS: There is acute oblique fracture distal fibula. There is soft tissue swelling around the ank le joint. Ankle mortise is anatomic. IMPRESSION: Acute nondisplaced lateral malleolus fracture.
--- NOTE | 2021-09-12 20:23 | XR ---
EXAMINATION TYPE: XR tibia fibula LT DATE OF EXAM: 09/12/2021 COMPARISON: NONE HISTORY: Pain TECHNIQUE: 2 views FINDINGS: 2 views were obtained and show nondisplaced oblique fracture distal shaft of the fibula. Ti aga is intact. Knee joint appears intact. IMPRESSION: Acute nondisplaced fracture of the distal fibula.
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
[2021-09-12] MEDS ORDERED: IBUPROFEN 800 MG TAB PO STA (21:04)
== END 2021-09-12 21:28 | disposition home or self-care (01) ==
LOC: EC 19:05
DX: S82.65XA Nondisplaced fracture of lateral malleolus of left fibula, initial encounter for closed fracture (principal); F17.200 Nicotine dependence, unspecified, uncomplicated; J45.909 Unspecified asthma, uncomplicated; V19.9XXA Pedal cyclist (driver) (passenger) injured in unspecified traffic accident, initial encounter
CPT/HCPCS: 73590; 73610; 99283; 29515; L4350; 99285